=== PATIENT | female | born 1945 | race Caucasian/White ===

== ENCOUNTER → 2018-02-17 | Outpatient (CLI) | payer OTHER, MEDICARE | END | disposition home or self-care (01) | LOC: KCIC 11:17 | DX: J43.9 Emphysema, unspecified (principal); I70.0 Atherosclerosis of aorta; I10 Essential (primary) hypertension; E78.5 Hyperlipidemia, unspecified; Z85.3 Personal history of malignant neoplasm of breast; Z87.891 Personal history of nicotine dependence | CPT/HCPCS: 71046 ==

== ENCOUNTER 2021-09-01 13:35 | Inpatient (IN) | payer MEDICARE ==
[~2021-09-01] VITALS: Ht 162.6 cm; Wt 66.5 kg
[~2021-09-01 13:35] MED LIST: AMLO-186 PO; ASPI-630 PO; ATOR20TA58 PO; CALC-274 PO; CITA20TA6 PO; DEXT350P PO; LOSA1TAB22 PO; METO100T7 PO; MULT-658 PO; OMEG500C PO
[2021-09-01] MEDS ORDERED: NITROGLYCERIN SUBLINGUAL 0.4 MG BOTTLE OF 25. SL PRN (13:45)
[2021-09-01] MEDS ORDERED: NITROGLYCERIN PREMIX 250 ML IV ONE (13:45)
[2021-09-01 13:46] LABS: BASO % 1 % (0-3); EOS # 0.1 x10^3/uL (0.0-0.7); EOS % 1 % (0-3); HEMATOCRIT 39.9 % (36.0-47.0); HEMOGLOBIN 13.4 g/dL (12.0-15.5); LYMPH # 2.1 x10^3/uL (1.0-4.8); LYMPH % 21 % (24-48); MEAN CORPUSCULAR HEMOGLOBIN 31 pg (25-35); MEAN CORPUSCULAR HGB CONC 34 g/dL (31-37); MEAN CORPUSCULAR VOLUME 93 fL (79-100); MONO # 0.7 x10^3/uL (0.0-1.1); MONO % 7 % (0-9); NEUT # 7.1 x10^3/uL (1.8-7.7); NEUT % 71 % (31-73); PLATELET COUNT 381 x10^3/uL (140-400); RED BLOOD COUNT 4.28 x10^6/uL (3.50-5.40); RED CELL DISTRIBUTION WIDTH 13.1 % (11.5-14.5); WHITE BLOOD COUNT 9.9 x10^3/uL (4.0-11.0)
[2021-09-01 13:58] LABS: CALCIUM 8.1 mg/dL (8.5-10.1); CREATININE 0.7 mg/dL (0.6-1.0); GFR 81.8; POTASSIUM 3.6 mmol/L (3.5-5.1)
--- NOTE | 2021-09-01 14:00 | PHYS DOC ---
General Adult EDM: Chief Complaint: CHEST PAIN HPI: HPI: Patient is a 75 year old female with history of HTN, HLD, previous smoker who presents with EMS as a transfer from nearby facility with concern for STEMI. Patient had chest pain for approximately 2 hours prior to initial ED arrival. Described as central chest. Squeezing in nature. Started while seated. The chest pain stopped prior to EMS transfer. At the outside facility she received Brilinta 180 mg, 324 mg of aspirin, and a heparin bolus of 4000 units. Now denies chest pain. Denies history of coronary artery disease or diabetes. States that she has had several bouts of similar chest pain in the past several weeks, but they typically improve after she stands up and walks around. Review of Systems: Review of Systems: Constitutional: Denies fever or chills. [] Eyes: Denies change in visual acuity. [] HENT: Denies nasal congestion or sore throat. [] Respiratory: Denies cough or shortness of breath. [] Cardiovascular: + Chest pain] GI: Denies abdominal pain, nausea, vomiting, bloody stools or diarrhea. [] : Denies dysuria. [] Musculoskeletal: Denies back pain or joint pain. [] Integument: Denies rash. [] Neurologic: Denies headache, focal weakness or sensory changes. [] Psychiatric: Denies depression or anxiety. [] Heart Score: C/O Chest Pain: Yes HEART Score for Chest Pain: HEART Score for Chest Pain Response (Comments) Value History Highly Suspicious [address] Depression 2 Age > 65 2 Risk Factors >3 Risk Factors or Hx CAD 2 Total 8 Risk Factors: Risk Factors: HTN, HLD, obesity. Previous smoker. Risk Scores: Score 7 - 10: 72.7% MACE over next 6 weeks - Early Invasive Strategies Current Medications: Current Medications Medications (Trade) Dose Ordered Sig/Madelin Start Time Stop Time Status Last Admin Dose Admin Heparin Sodium (Porcine) (Heparin Sodium) 1,800 unit PRN Q6HRS PRN 09/01/21 13:45 UNV Heparin Sodium/ Dextrose 250 ml @ 0 mls/hr CONT PRN 09/01/21 13:45 UNV Nitroglycerin (Nitrostat) 0.4 mg PRN Q5MIN PRN 09/01/21 13:45 09/01/21 13:45 0.4 MG Nitroglycerin/ Dextrose 250 ml @ 6 mls/hr 1X ONCE 09/01/21 13:45 09/03/21 07:24 Allergies: Allergies: Allergies Coded Allergies Type Severity Reaction Last Updated Verified No Known Drug Allergies 08/13/13 No Physical Exam: PE: Constitutional: Anxious appearing but not in distress. HENT: Normocephalic, atraumatic, bilateral external ears normal, oropharynx moist, no oral exudates, nose normal. [] Eyes: PERRLA, EOMI, conjunctiva normal, no discharge. [] Neck: Normal range of motion, no tenderness, supple, no stridor. [] Cardiovascular:Heart rate regular rhythm, no murmur [] Lungs & Thorax: Bilateral breath sounds clear to auscultation [] Abdomen: Bowel sounds normal, soft, no tenderness, no masses, no pulsatile masses. [] Skin: Warm, dry, no erythema, no rash. [] Extremities: No tenderness, no cyanosis, no clubbing, ROM intact, no edema. [] Neurologic: Alert and oriented X 3, normal motor function, normal sensory funct ion, no focal deficits noted. [] Current Patient Data: Labs: Laboratory Tests Test 09/01/21 13:31 White Blood Count 9.9 x10^3/uL (4.0-11.0) Red Blood Count 4.28 x10^6/uL (3.50-5.40) Hemoglobin 13.4 g/dL (12.0-15.5) Hematocrit 39.9 % (36.0-47.0) Mean Corpuscular Volume 93 fL (79-100) Mean Corpuscular Hemoglobin 31 pg (25-35) Mean Corpuscular Hemoglobin Concent 34 g/dL (31-37) Red Cell Distribution Width 13.1 % (11.5-14.5) Platelet Count 381 x10^3/uL (140-400) Neutrophils (%) (Auto) 71 % (31-73) Lymphocytes (%) (Auto) 21 % (24-48) L Monocytes (%) (Auto) 7 % (0-9) Eosinophils (%) (Auto) 1 % (0-3) Basophils (%) (Auto) 1 % (0-3) Neutrophils # (Auto) 7.1 x10^3/uL (1.8-7.7) Lymphocytes # (Auto) 2.1 x10^3/uL (1.0-4.8) Monocytes # (Auto) 0.7 x10^3/uL (0.0-1.1) Eosinophils # (Auto) 0.1 x10^3/uL (0.0-0.7) Basophils # (Auto) 0.0 x10^3/uL (0.0-0.2) Laboratory Tests 09/01/21 13:31 Vital Signs: Vital Signs Date Time Temp Pulse Resp B/P (MAP) Pulse Ox O2 Delivery O2 Flow Rate FiO2 09/01/21 13:45 81 173/89 EKG: EKG: EKG on arrival (13:31): Sinus rhythm. Rate 79. Normal axis. Normal intervals. QTc 463. T wave inversion in lead III. Significant ST depression in V3V6. Outside hospital EKG (photo): Sinus rhythm. Rate 84. Normal axis. Subtle ST elevations in 2, 3, aVF with T wave inversion and ST depression in 1, aVL, and V3. Radiology/Procedures: Radiology/Procedures: [] Impression: [id number] [place] [address] IMAGING REPORT Signed PATIENT: AUSTEN HUBBARD ACCOUNT: [id number] : 1945 LOCATION: ER AGE: 75 SEX: F EXAM STATUS: PRE ER ORD. PHYSICIAN: CK COOK MD REASON: chest pain PROCEDURE: PORTABLE CHEST 1V EXAM: CHEST 1 VIEW History: Chest pain COMPARISON: 02/17/2018 TECHNIQUE: Single portable radiograph of the chest FINDINGS: The cardiac silhouette is unremarkable. The lungs are clear bilaterally. The costophrenic sulci are clear and well demarcated.. IMPRESSION: No radiographic evidence of an acute cardiopulmonary process. Electronically signed by: Ryland Corbin MD (09/01/2021 1:58 PM) [id number] DICTATED and SIGNED BY: RYLAND CORBIN MD DATE: 09/01/21 [id number] 0 Course & Med Decision Making: Course & Med Decision Making Pertinent Labs and Imaging studies reviewed. (See chart for details) Patient is a 75-year-old female with history of HTN, HLD, previous smoker who presents as a transfer from OSH with concern for STEMI. Outside hospital EKG with subtle ST elevation in the inferior leads. Was given heparin bolus, aspirin, Brilinta prior to transfer. Prior to arrival her chest pain has dissipated. EKG on arrival shows resolution of ST elevations, but shows more significant ST depressions V3V6. Repeat after 15 minutes shows dynamic T wave inversion in lead III, but no recurrence of ST elevation. Stable ST depressions. Cardiology, Dr. Cevallos, was present on patient arrival. Heparin drip and nitroglycerin drip ordered as per cardiology recommendations. Having resolution of ST elevations cardiac cath has been delayed until troponin can result to determine immediate versus delayed cath strategy. 1404 HS-Troponin 117 1408 Patient remains pain free. Discussed with Dr. Cevallos who is recommending delayed catheterization unless pain or EKG changes return. 1418 Dragon Disclaimer: Dragon Disclaimer: This electronic medical record was generated, in whole or in part, using a voice recognition dictation system. Departure Departure Impression: Primary Impression: Chest pain Additional Impression: NSTEMI (non-ST elevated myocardial infarction) Disposition: ADMITTED INPATIENT Admitting Physician: AMA Condition: IMPROVED Referrals: FRANNY HUNTER MD (PCP) CK COOK MD Sep 01, 2021 14:00
[2021-09-01 14:03] LABS: ALBUMIN 3.6 g/dL (3.4-5.0); ALBUMIN/GLOBULIN RATIO 0.8 (1.0-1.7); TOTAL BILIRUBIN 0.3 mg/dL (0.2-1.0); TOTAL PROTEIN 7.9 g/dL (6.4-8.2)
[2021-09-01] MEDS: HEPARIN 25,000UTS/250ML PREMIX 250 ML IV PRN (14:49)
--- NOTE | 2021-09-01 15:27 | EKG ---
[facility] [address] [place] [address] Test Date: 2021-09-01 Test Time: 13:31:00 Pat Name: AUSTEN HUBBARD Department: Room: Gender: F Shoe Designer: : 1945 Requested By: CK COOK Order Number: [id number] Reading MD: Aneesh Cantor Measurements Intervals [place] Rate: 86 P: 242 IN: 126 QRS: 77 QRSD: 102 T: 64 QT: 376 QTc: 453 Interpretive Statements SINUS RHYTHM ST & T ABNORMALITY, CONSIDER ANTERIOR ISCHEMIA OR LEFT VENTRICULAR STRAIN Electronically Signed On 09-03-2021 11:56:40 ENGINEER SYSTEM ADMINISTRATOR by Aneesh Cantor
--- NOTE | 2021-09-01 15:28 | EKG ---
[facility] [address] [place] [address] Test Date: 2021-09-01 Test Time: 13:45:54 Pat Name: AUSTEN HUBBARD Department: Room: Gender: F Pump Stitcher: : 1945 Requested By: CK COOK Order Number: [id number] Reading MD: Aneesh Cantor Measurements Intervals [place] Rate: 79 P: [place]: QRS: 80 QRSD: 106 T: 31 QT: 398 QTc: 463 Interpretive Statements SINUS RHYTHM ST DEPRESSION ANTEROLATERAL LEADS Electronically Signed On 09-03-2021 11:55:26 CEMENT DESPATCH OPERATOR by Aneesh Cantor
[2021-09-01 16:25] VITALS: BP 161/70
[2021-09-01] MEDS ORDERED: ASCO100T4 PO (17:09)
--- NOTE | 2021-09-01 18:09 | PDOC2 ---
CONSULT Date of Consult Date of Consult DATE: 09/01/21 TIME: 18:00 Reason for Consult Reason for Consult: Chest pain Referring Physician Referring Physician: Dr. Davila Identification/Chief Complaint Chief Complaint Chest pain Source Source: Chart review, Patient History of Present Illness Reason for Visit: The patient is a 75-year-old female who was admitted to [facility] with episodes of chest pain for 2 to 2-1/2 hours. She reported several of these episodes over the last month. This was the first time she had sought medical treatment. An EKG there showed mild ST segment elevation in the inferior leads. She was treated with heparin, aspirin and Brilinta and transferred for a possible ST elevated myocardial infarction. She was met upon her arrival in the emergency room. She reported that her chest pain had resolved. An EKG showed that her inferior ST elevation had resolved but she continues have some ST depression in the lateral leads. She denies any history of coronary disease or congestive heart failure. She does have a history of hypertension and hyperlipidemia. Her initial blood pressure on arrival was 173/89. Chest x-ray showed no acute processes. She was initially treated with IV nitro and heparin. Her blood pressure improved to 136 systolic. A second EKG again confirmed no inferior ST elevation. She remained pain-free. Emergency catheterization was deferred for treatment with the patient for a probable non-ST elevated myocardial infarction. This was discussed with the patient. Past Medical History Cardiovascular: HTN, Hyperlipidemia Pulmonary: COPD Heme/Onc: Cancer Past Surgical History Past Surgical History: Other (Procedure on her right breast for breast cancer.) Family History Family History: Hypertension Social History Quit Current Problem List Problem List Problems Medical Problems: (1) Chest pain Status: Acute (2) NSTEMI (non-ST elevated myocardial infarction) Status: Acute Current Medications Current Medications Current Medications Heparin Sodium/ Dextrose 250 ml @ 8.388 mls/ hr CONT PRN IV PER PROTOCOL Last administered on 09/01/21at 14:49; Start 09/01/21 at 13:45 Heparin Sodium (Porcine) (Heparin Sodium) 1,800 unit PRN Q6HRS PRN IV FOR UFH LEVEL LESS THAN 0.2; Start 09/01/21 at 13:45 Nitroglycerin/ Dextrose 250 ml @ 6 mls/hr 1X ONCE IV Last administered on 09/01/21at 14:46; Start 09/01/21 at 13:45; Stop 09/03/21 at 07:24 Nitroglycerin (Nitrostat) 0.4 mg PRN Q5MIN PRN SL CHEST PAIN Last administered on 09/01/21at 13:45; Start 09/01/21 at 13:45 Amlodipine Besylate (Norvasc) 5 mg HS PO ; Start 09/01/21 at 21:00 Aspirin (Aspirin Chewable) 81 mg DAILY PO ; Start 09/02/21 at 09:00 Atorvastatin Calcium (Lipitor) 20 mg HS PO ; Start 09/01/21 at 21:00 Ascorbic Acid (Vitamin C) 500 mg DAILY PO ; Start 09/02/21 at 09:00 Losartan Potassium (Cozaar) 100 mg DAILY PO ; Start 09/02/21 at 09:00 Metoprolol Succinate (Toprol Xl) 100 mg DAILY PO ; Start 09/02/21 at 09:00 Multivitamins (Thera M Plus) 1 tab DAILY PO ; Start 09/02/21 at 09:00 Hydrochlorothiazide (Hydrodiuril) 25 mg DAILY PO ; Start 09/02/21 at 09:00 Active Scripts Active Reported Vitamin C (Ascorbic Acid) 100 Mg Tablet 1 Tab PO DAILY 30 Days Centrum Silver Tablet (Multivits-Min/Fa/Lycopene/Lut) 1 Each Tablet 1 Each PO DAILY07 Aspirin 81 Mg Tab.chew 81 Mg PO DAILY07 Amlodipine Besylate 5 Mg Tablet 5 Mg PO HS Atorvastatin Calcium 20 Mg Tablet 20 Mg PO HS Losartan-Hctz 100-25 Mg Tab (Losartan/Hydrochlorothiazide) 1 Each Tablet 1 Each PO DAILY07 Metoprolol Tartrate 100 Mg Tablet 100 Mg PO DAILY07 Allergies Allergies: Coded Allergies: No Known Drug Allergies (Unverified , 08/13/13) ROS Cardiovascular: yes Chest Pain Physical Exam General: Alert, No acute distress Lungs: Clear to auscultation Heart: Regular rate Abdomen: Normal bowel sounds Vitals VITALS Vital Signs Date Time Temp Pulse Resp B/P (MAP) Pulse Ox O2 Delivery O2 Flow Rate FiO2 09/01/21 17:43 Room Air 09/01/21 16:35 72 18 98/63 (75) 100 2.0 09/01/21 16:25 98.0 98.0 Labs Labs Laboratory Tests Test 09/01/21 13:31 2/5/22 13:35 09/01/21 14:23 09/01/21 16:34 White Blood Count 9.9 x10^3/uL (4.0-11.0) Red Blood Count 4.28 x10^6/uL (3.50-5.40) Hemoglobin 13.4 g/dL (12.0-15.5) Hematocrit 39.9 % (36.0-47.0) Mean Corpuscular Volume 93 fL (79-100) Mean Corpuscular Hemoglobin 31 pg (25-35) Mean Corpuscular Hemoglobin Concent 34 g/dL (31-37) Red Cell Distribution Width 13.1 % (11.5-14.5) Platelet Count 381 x10^3/uL (140-400) Neutrophils (%) (Auto) 71 % (31-73) Lymphocytes (%) (Auto) 21 % (24-48) Monocytes (%) (Auto) 7 % (0-9) Eosinophils (%) (Auto) 1 % (0-3) Basophils (%) (Auto) 1 % (0-3) Neutrophils # (Auto) 7.1 x10^3/uL (1.8-7.7) Lymphocytes # (Auto) 2.1 x10^3/uL (1.0-4.8) Monocytes # (Auto) 0.7 x10^3/uL (0.0-1.1) Eosinophils # (Auto) 0.1 x10^3/uL (0.0-0.7) Basophils # (Auto) 0.0 x10^3/uL (0.0-0.2) Sodium Level 137 mmol/L (136-145) Potassium Level 3.6 mmol/L (3.5-5.1) Chloride Level 98 mmol/L (98-107) Carbon Dioxide Level 29 mmol/L (21-32) Anion Gap 10 (6-14) Blood Urea Nitrogen 15 mg/dL (7-20) Creatinine 0.7 mg/dL (0.6-1.0) Estimated GFR (Cockcroft-Gault) 81.8 BUN/Creatinine Ratio 21 (6-20) Glucose Level 116 mg/dL (70-99) Calcium Level 8.1 mg/dL (8.5-10.1) Total Bilirubin 0.3 mg/dL (0.2-1.0) Aspartate Amino Transf (AST/SGOT) 28 U/L (15-37) Alanine Aminotransferase (ALT/SGPT) 34 U/L (14-59) Alkaline Phosphatase 61 U/L (46-116) Troponin I High Sensitivity 117 ng/L (4-50) 861 ng/L (4-50) Total Protein 7.9 g/dL (6.4-8.2) Albumin 3.6 g/dL (3.4-5.0) Albumin/Globulin Ratio 0.8 (1.0-1.7) Activated Partial Thromboplast Time > 150 SEC (24-38) 80 SEC (24-38) Laboratory Tests Test 09/01/21 13:31 09/01/21 13:35 09/01/21 14:23 09/01/21 16:34 White Blood Count 9.9 x10^3/uL (4.0-11.0) Red Blood Count 4.28 x10^6/uL (3.50-5.40) Hemoglobin 13.4 g/dL (12.0-15.5) Hematocrit 39.9 % (36.0-47.0) Mean Corpuscular Volume 93 fL (79-100) Mean Corpuscular Hemoglobin 31 pg (25-35) Mean Corpuscular Hemoglobin Concent 34 g/dL (31-37) Red Cell Distribution Width 13.1 % (11.5-14.5) Platelet Count 381 x10^3/uL (140-400) Neutrophils (%) (Auto) 71 % (31-73) Lymphocytes (%) (Auto) 21 % (24-48) Monocytes (%) (Auto) 7 % (0-9) Eosinophils (%) (Auto) 1 % (0-3) Basophils (%) (Auto) 1 % (0-3) Neutrophils # (Auto) 7.1 x10^3/uL (1.8-7.7) Lymphocytes # (Auto) 2.1 x10^3/uL (1.0-4.8) Monocytes # (Auto) 0.7 x10^3/uL (0.0-1.1) Eosinophils # (Auto) 0.1 x10^3/uL (0.0-0.7) Basophils # (Auto) 0.0 x10^3/uL (0.0-0.2) Sodium Level 137 mmol/L (136-145) Potassium Level 3.6 mmol/L (3.5-5.1) Chloride Level 98 mmol/L (98-107) Carbon Dioxide Level 29 mmol/L (21-32) Anion Gap 10 (6-14) Blood Urea Nitrogen 15 mg/dL (7-20) Creatinine 0.7 mg/dL (0.6-1.0) Estimated GFR (Cockcroft-Gault) 81.8 BUN/Creatinine Ratio 21 (6-20) Glucose Level 116 mg/dL (70-99) Calcium Level 8.1 mg/dL (8.5-10.1) Total Bilirubin 0.3 mg/dL (0.2-1.0) Aspartate Amino Transf (AST/SGOT) 28 U/L (15-37) Alanine Aminotransferase (ALT/SGPT) 34 U/L (14-59) Alkaline Phosphatase 61 U/L (46-116) Troponin I High Sensitivity 117 ng/L (4-50) 861 ng/L (4-50) Total Protein 7.9 g/dL (6.4-8.2) Albumin 3.6 g/dL (3.4-5.0) Albumin/Globulin Ratio 0.8 (1.0-1.7) Activated Partial Thromboplast Time > 150 SEC (24-38) 80 SEC (24-38) Images Images Chest x-ray with no acute changes. Assessment/Plan Assessment/Plan 1. Non-ST elevated myocardial infarction. As noted above patient arrived in the emergency room chest pain-free. EKG showed no ST elevation. She continues to be treated with heparin and nitroglycerin and has remained pain-free. We will trend her troponins. Continue present medical treatment. Probable cardiac catheterization in 24 to 48 hours if she remains stable. 2. Accelerated hypertension. Initial systolic blood pressure of 173. Initiall y treated with IV nitroglycerin. Will monitor and add oral medications as appropriate. 3. History of hyperlipidemia. Continue statin medications. Check morning lab. 4. History of breast cancer. We will obtain records regarding this. ELLIS CHERY MD Sep 01, 2021 18:09
--- NOTE | 2021-09-01 18:43 | HP ---
DATE OF SERVICE: 09/01/2021 ADMIT DATE: 09/01/2021 CHIEF COMPLAINT: Chest pain. HISTORY OF PRESENT ILLNESS: The patient is a pleasant 75-year-old female who presented to the ER with chest pain. She actually went to the [facility] where they noted that she had some EKG changes and was sent here for evaluation. We checked her troponin, it was high at 117 and it now has bumped up to 861. I discussed the case with ER physician. We are placing the patient on a heparin drip and nitro drip. We have consulted Cardiology. I suspect she might be going to the chemistry laboratory technician. PAST MEDICAL HISTORY: Hypertension, COPD, hyperlipidemia, cancer. ALLERGIES: None. FAMILY HISTORY: She denies coronary artery disease in the family. SOCIAL HISTORY: She does not drink, smoke or take drugs. She is . I think she quit smoking. MEDICATIONS: Reviewed, please refer to the MRAD. REVIEW OF SYSTEMS: GENERAL: No history of weight change, weakness or fevers. SKIN: No bruising, hair changes or rashes. EYES: No blurred, double or loss of vision. NOSE AND THROAT: No history of nosebleeds, hoarseness or sore throat. HEART: No history of palpitations, chest pain or shortness of breath on exertion. LUNGS: Denies cough, hemoptysis, wheezing or shortness of breath. GASTROINTESTINAL: Denies changes in appetite, nausea, vomiting, diarrhea or constipation. GENITOURINARY: No history of frequency, urgency, hesitancy or nocturia. NEUROLOGIC: Denies history of numbness, tingling, tremor or weakness. PSYCHIATRIC: No history of panic, anxiety or depression. ENDOCRINE: No history of heat or cold intolerance, polyuria or polydipsia. EXTREMITIES: Denies muscle weakness, joint pain, pain on walking or stiffness. PHYSICAL EXAMINATION: VITALS: Within normal limits and are stable. GENERAL: No apparent distress. Alert and oriented. HEENT: Normal cephalic atraumatic, external auditory canals are patent. EYES: Extraocular muscles are intact, pupils are equally round and reactive to light and accommodation. MUSCULOSKELETAL: Well developed, well nourished, good range of motion. ENDOCRINE: No thyromegaly was palpated. LYMPHATICS: No cervical chain or axillary nodes were noted. HEMATOPOIETIC: No bruising. NECK: Supple, no JVD, no thyromegaly was noted. LUNGS: Clear to auscultation in all lung abdi without rhonchi or wheezing. HEART: RRR, S1, S2 present. Peripheral pulses intact, no obvious murmurs were noted. ABDOMEN: Soft, nontender. Positive bowel sounds no organomegaly, normal bowel sounds. EXTREMITIES: Without any cyanosis, clubbing, or edema. Pedal pulses intact, Homans sign is negative. NEUROLOGIC: Normal speech, normal tone. A and O x 3, moves all extremities, no obvious focal deficits. PSYCHIATRIC: Normal affect, normal mood. Stable. SKIN: No ulcerations or rashes, good skin turgor, no jaundice. VASCULAR: Good capillary refill, neurovascular bundle appears to be intact. LABORATORY DATA: Her troponin is high at 861. ASSESSMENT AND PLAN: Acute myocardial infarction. The patient will be admitted. We will consult Cardiology. We placed her on a heparin drip and a nitro drip. Dr. Cevallos is considering probable cardiac cath in the next 24-48 hours if she remains stable. Home meds. Deep venous thrombosis prophylaxis. Full code. PROGNOSIS: Guarded. LEIGH ANN/JESUS DR: Roman TID: [id number]
[2021-09-01 19:25] VITALS: BP 138/65
[2021-09-01 20:45] VITALS: BP 129/64
[2021-09-01] MEDS: ATORVASTATIN CALCIUM 20 MG TABLET PO SCH (20:55)
[2021-09-01 22:28] VITALS: BP 120/60
[2021-09-01] MEDS: HEPARIN for IV BOLUS 10,000 UNIT/10 ML VIAL. IV PRN (22:41)
[2021-09-02] VITALS (8 sets, daily range): BP systolic 122–154; BP diastolic 60–67
[2021-09-02 05:36] LABS: CALCIUM 8.8 mg/dL (8.5-10.1); CREATININE 0.6 mg/dL (0.6-1.0); GFR 97.7; POTASSIUM 3.7 mmol/L (3.5-5.1)
[2021-09-02 05:39] LABS: CHOLESTEROL/HDL RATIO 2.9
[2021-09-02] MEDS: HEPARIN for IV BOLUS 10,000 UNIT/10 ML VIAL. IV PRN (06:21)
[2021-09-02] MEDS: LOSARTAN POTASSIUM 50 MG TABLET. PO SCH (08:37)
[2021-09-02] MEDS: hydroCHLOROthiazide 25 MG TABLET PO SCH (08:37)
[2021-09-02] MEDS: ASPIRIN CHEWABLE 81 MG TABLET. PO SCH (08:38)
[2021-09-02] MEDS: METOPROLOL SUCC 24HR ER 100 MG TAB.ER.24H. PO SCH (08:38)
[2021-09-02] MEDS: ASCORBIC ACID 500 MG TABLET PO SCH (08:38)
[2021-09-02] MEDS: MULTIVITAMIN with MINERAL TABLET. PO SCH (08:38)
--- NOTE | 2021-09-02 09:47 | PDOC ---
[employer] PROGRESS NOTE Date of Service DOS: DATE: 09/02/21 TIME: 09:27 Chief Complaint Chief Complaint A/P: NSTEMI - chest pain, elevated troponin, no ST elevations, some depressions improved with heparin and nitro GTT. Cardiac catheterization within the next 24 hours planned. Breast cancer - bilateral s/p lumpectomy and right axillary lypmh node dissection, chemo and radiation therapy in 2002, been in remission, off tamoxifen currently Hypertension - on metoprolol, olmesartan, HCTZ Hyperlipidemia - statin COPD - prn nebs History of Present Illness History of Present Illness Ms. Fox is a 75-year-old female with past medical history hypertension, hyperlipidemia, COPD who comes from [facility] ED c/o chest pain for 2 hours on 09/01/21 in her central chest. Squeezing in nature. Started while seated. Radiated into her bilateral posterior neck. The chest pain stopped prior to EMS transfer. She has had a few of these episodes over the last 2 days prior to arrival. EKG with mild ST segment elevation in the inferior leads, she received Brilinta 180 mg, 324 mg of aspirin, and a heparin bolus of 4000 units. Repeat EKG showed that her inferior ST elevation had resolved but she continues have some ST depression in the lateral leads. Chest x-ray showed no acute processes. She was initially treated with IV nitro and heparin. Her blood pressure improved to 136 systolic. A second EKG again confirmed no inferior ST elevation. 09/01: Overnight high-sensitivity troponin climbed from [phone] over 8-hour period.Complains of lower back pain. Chest pain neck pain have resolved. Blood pressure in the 120s. Vitals/I&O Vitals/I&O: Vital Signs Date Time Temp Pulse Resp B/P (MAP) Pulse Ox O2 Delivery O2 Flow Rate FiO2 09/02/21 08:38 77 09/02/21 07:00 97.8 16 122/60 (80) 94 Room Air 97.8 09/01/21 16:35 2.0 I & O 09/01/21 09/01/21 09/02/21 15:00 23:00 07:00 Intake Total 210 ml 200 ml Output Total 1100 ml 1250 ml Balance -890 ml -1050 ml Physical Exam General: Alert, No acute distress Heart: Regular rate Abdomen: Normal bowel sounds Labs Labs: Laboratory Tests Test 09/01/21 13:31 09/01/21 13:35 09/01/21 14:23 09/01/21 16:34 White Blood Count 9.9 x10^3/uL (4.0-11.0) Red Blood Count 4.28 x10^6/uL (3.50-5.40) Hemoglobin 13.4 g/dL (12.0-15.5) Hematocrit 39.9 % (36.0-47.0) Mean Corpuscular Volume 93 fL (79-100) Mean Corpuscular Hemoglobin 31 pg (25-35) Mean Corpuscular Hemoglobin Concent 34 g/dL (31-37) Red Cell Distribution Width 13.1 % (11.5-14.5) Platelet Count 381 x10^3/uL (140-400) Neutrophils (%) (Auto) 71 % (31-73) Lymphocytes (%) (Auto) 21 % (24-48) Monocytes (%) (Auto) 7 % (0-9) Eosinophils (%) (Auto) 1 % (0-3) Basophils (%) (Auto) 1 % (0-3) Neutrophils # (Auto) 7.1 x10^3/uL (1.8-7.7) Lymphocytes # (Auto) 2.1 x10^3/uL (1.0-4.8) Monocytes # (Auto) 0.7 x10^3/uL (0.0-1.1) Eosinophils # (Auto) 0.1 x10^3/uL (0.0-0.7) Basophils # (Auto) 0.0 x10^3/uL (0.0-0.2) Sodium Level 137 mmol/L (136-145) Potassium Level 3.6 mmol/L (3.5-5.1) Chloride Level 98 mmol/L (98-107) Carbon Dioxide Level 29 mmol/L (21-32) Anion Gap 10 (6-14) Blood Urea Nitrogen 15 mg/dL (7-20) Creatinine 0.7 mg/dL (0.6-1.0) Estimated GFR (Cockcroft-Gault) 81.8 BUN/Creatinine Ratio 21 (6-20) Glucose Level 116 mg/dL (70-99) Calcium Level 8.1 mg/dL (8.5-10.1) Total Bilirubin 0.3 mg/dL (0.2-1.0) Aspartate Amino Transf (AST/SGOT) 28 U/L (15-37) Alanine Aminotransferase (ALT/SGPT) 34 U/L (14-59) Alkaline Phosphatase 61 U/L (46-116) Troponin I High Sensitivity 117 ng/L (4-50) 861 ng/L (4-50) Total Protein 7.9 g/dL (6.4-8.2) Albumin 3.6 g/dL (3.4-5.0) Albumin/Globulin Ratio 0.8 (1.0-1.7) Activated Partial Thromboplast Time > 150 SEC (24-38) 80 SEC (24-38) Test 09/01/21 21:30 09/02/21 05:10 Heparin Anti-Xa Act, Unfractionated 0.18 IU/mL (0.30-0.70) < 0.10 IU/mL (0.30-0.70) Troponin I High Sensitivity 1154 ng/L (4-50) Sodium Level 136 mmol/L (136-145) Potassium Level 3.7 mmol/L (3.5-5.1) Chloride Level 102 mmol/L (98-107) Carbon Dioxide Level 25 mmol/L (21-32) Anion Gap 9 (6-14) Blood Urea Nitrogen 12 mg/dL (7-20) Creatinine 0.6 mg/dL (0.6-1.0) Estimated GFR (Cockcroft-Gault) 97.7 Glucose Level 108 mg/dL (70-99) Calcium Level 8.8 mg/dL (8.5-10.1) Triglycerides Level 171 mg/dL (0-150) Cholesterol Level 149 mg/dL (0-200) LDL Cholesterol, Calculated 63 mg/dL (0-100) VLDL Cholesterol, Calculated 34 mg/dL (0-40) Non-HDL Cholesterol Calculated 97 mg/dL (0-129) HDL Cholesterol 52 mg/dL (40-60) Cholesterol/HDL Ratio 2.9 Assessment and Plan Assessmemt and Plan Problems Medical Problems: (1) Chest pain Status: Acute (2) NSTEMI (non-ST elevated myocardial infarction) Status: Acute Comment Review of Relevant I have reviewed the following items pepper (where applicable) has been applied. Medications: Current Medications Medications (Trade) Dose Ordered Sig/Madelin Route PRN Reason Start Time Stop Time Status Last Admin Dose Admin Heparin Sodium/ Dextrose 250 ml @ 8.388 mls/ hr CONT PRN IV PER PROTOCOL 09/01/21 13:45 09/01/21 14:49 Heparin Sodium (Porcine) (Heparin Sodium) 1,800 unit PRN Q6HRS PRN IV FOR UFH LEVEL LESS THAN 0.2 09/01/21 13:45 09/02/21 06:21 Nitroglycerin/ Dextrose 250 ml @ 6 mls/hr 1X ONCE IV 09/01/21 13:45 09/03/21 07:24 09/01/21 14:46 Nitroglycerin (Nitrostat) 0.4 mg PRN Q5MIN PRN SL CHEST PAIN 09/01/21 13:45 09/01/21 13:45 Amlodipine Besylate (Norvasc) 5 mg HS PO 09/01/21 21:00 09/01/21 20:54 Aspirin (Aspirin Chewable) 81 mg DAILY PO 09/02/21 09:00 09/02/21 08:38 Atorvastatin Calcium (Lipitor) 20 mg HS PO 09/01/21 21:00 09/01/21 20:55 Ascorbic Acid (Vitamin C) 500 mg DAILY PO 09/02/21 09:00 09/02/21 08:38 Losartan Potassium (Cozaar) 100 mg DAILY PO 09/02/21 09:00 09/02/21 08:37 Metoprolol Succinate (Toprol Xl) 100 mg DAILY PO 09/02/21 09:00 09/02/21 08:38 Multivitamins (Thera M Plus) 1 tab DAILY PO 09/02/21 09:00 09/02/21 08:38 Hydrochlorothiazide (Hydrodiuril) 25 mg DAILY PO 09/02/21 09:00 09/02/21 08:37 Justifications for Admission Other Justification JEEVAN QUINTANILLA MD Sep 02, 2021 09:47
[2021-09-02] MEDS: LIDOCAINE (700MG/PATCH) PATCH. TD SCH (09:53)
[2021-09-02] MEDS ORDERED: ALBUTEROL SULFATE 2.5 MG/3 ML NEBU. NEB PRN (10:00)
[2021-09-02] MEDS: HEPARIN 25,000UTS/250ML PREMIX 250 ML IV PRN (12:19)
[2021-09-02 13:58] LABS: BASO % 0 % (0-3); EOS # 0.1 x10^3/uL (0.0-0.7); EOS % 1 % (0-3); HEMATOCRIT 36.3 % (36.0-47.0); HEMOGLOBIN 12.4 g/dL (12.0-15.5); LYMPH % 22 % (24-48); MEAN CORPUSCULAR HEMOGLOBIN 32 pg (25-35); MEAN CORPUSCULAR HGB CONC 34 g/dL (31-37); MEAN CORPUSCULAR VOLUME 92 fL (79-100); MONO # 0.6 x10^3/uL (0.0-1.1); MONO % 6 % (0-9); NEUT # 6.6 x10^3/uL (1.8-7.7); NEUT % 71 % (31-73); PLATELET COUNT 348 x10^3/uL (140-400); RED BLOOD COUNT 3.93 x10^6/uL (3.50-5.40); RED CELL DISTRIBUTION WIDTH 13.5 % (11.5-14.5); WHITE BLOOD COUNT 9.3 x10^3/uL (4.0-11.0)
--- NOTE | 2021-09-02 15:22 | PDOC ---
PROGRESS NOTES Date of Service DATE: 09/02/21 TIME: 15:19 Subjective Subjective Patient seen and examined She looks and feels better today. She has remained chest pain-free since admission. Objective Objective Vital Signs Date Time Temp Pulse Resp B/P (MAP) Pulse Ox O2 Delivery O2 Flow Rate FiO2 09/02/21 11:00 98.2 69 16 122/60 (80) 94 Room Air 98.2 09/01/21 16:35 2.0 Intake and Output 09/02/21 07:00 Intake Total 410 ml Output Total 2350 ml Balance -1940 ml Intake Oral 410 ml Output Urine Total 2350 ml # Voids 1 # Bowel Movements 1 Physical Exam Abdomen: Normal bowel sounds Heart: Regular rate General: No acute distress Lungs: Other (Slightly decreased breath sounds) Assessment Assessment CalciumProblems Medical Problems: (1) Chest pain Status: Acute (2) NSTEMI (non-ST elevated myocardial infarction) Status: Acute 1. Non-ST elevated myocardial infarction. As noted above patient arrived in the emergency room chest pain-free. EKG showed no ST elevation. She has remained chest pain-free overnight. Peak troponin of 1154. 3.7, creatinine 0.6, LDL 63 and HDL of 52. We will continue present treatment. Cardiac catheterization and possible revascularization tomorrow. Risks and benefits discussed with the patient and she has agreed to proceed. 2. Accelerated hypertension. Initial systolic blood pressure of 173. Initially treated with IV nitroglycerin. Significantly improved today. We will continue present medications and add oral medications. 3. History of hyperlipidemia. Continue statin medications. Morning lab as above shows a LDL of 63 and an HDL of 52. Check morning lab. 4. History of breast cancer. Comment Review of Relevant I have reviewed the following items pepper (where applicable) has been applied. Labs Laboratory Tests Test 09/01/21 13:31 09/01/21 13:35 09/01/21 14:23 09/01/21 16:34 White Blood Count 9.9 x10^3/uL (4.0-11.0) Red Blood Count 4.28 x10^6/uL (3.50-5.40) Hemoglobin 13.4 g/dL (12.0-15.5) Hematocrit 39.9 % (36.0-47.0) Mean Corpuscular Volume 93 fL (79-100) Mean Corpuscular Hemoglobin 31 pg (25-35) Mean Corpuscular Hemoglobin Concent 34 g/dL (31-37) Red Cell Distribution Width 13.1 % (11.5-14.5) Platelet Count 381 x10^3/uL (140-400) Neutrophils (%) (Auto) 71 % (31-73) Lymphocytes (%) (Auto) 21 % (24-48) Monocytes (%) (Auto) 7 % (0-9) Eosinophils (%) (Auto) 1 % (0-3) Basophils (%) (Auto) 1 % (0-3) Neutrophils # (Auto) 7.1 x10^3/uL (1.8-7.7) Lymphocytes # (Auto) 2.1 x10^3/uL (1.0-4.8) Monocytes # (Auto) 0.7 x10^3/uL (0.0-1.1) Eosinophils # (Auto) 0.1 x10^3/uL (0.0-0.7) Basophils # (Auto) 0.0 x10^3/uL (0.0-0.2) Sodium Level 137 mmol/L (136-145) Potassium Level 3.6 mmol/L (3.5-5.1) Chloride Level 98 mmol/L (98-107) Carbon Dioxide Level 29 mmol/L (21-32) Anion Gap 10 (6-14) Blood Urea Nitrogen 15 mg/dL (7-20) Creatinine 0.7 mg/dL (0.6-1.0) Estimated GFR (Cockcroft-Gault) 81.8 BUN/Creatinine Ratio 21 (6-20) Glucose Level 116 mg/dL (70-99) Calcium Level 8.1 mg/dL (8.5-10.1) Total Bilirubin 0.3 mg/dL (0.2-1.0) Aspartate Amino Transf (AST/SGOT) 28 U/L (15-37) Alanine Aminotransferase (ALT/SGPT) 34 U/L (14-59) Alkaline Phosphatase 61 U/L (46-116) Troponin I High Sensitivity 117 ng/L (4-50) 861 ng/L (4-50) Total Protein 7.9 g/dL (6.4-8.2) Albumin 3.6 g/dL (3.4-5.0) Albumin/Globulin Ratio 0.8 (1.0-1.7) Activated Partial Thromboplast Time > 150 SEC (24-38) 80 SEC (24-38) Test 09/01/21 21:30 09/02/21 05:10 09/02/21 13:23 Heparin Anti-Xa Act, Unfractionated 0.18 IU/mL (0.30-0.70) < 0.10 IU/mL (0.30-0.70) 0.57 IU/mL (0.30-0.70) Troponin I High Sensitivity 1154 ng/L (4-50) Sodium Level 136 mmol/L (136-145) Potassium Level 3.7 mmol/L (3.5-5.1) Chloride Level 102 mmol/L (98-107) Carbon Dioxide Level 25 mmol/L (21-32) Anion Gap 9 (6-14) Blood Urea Nitrogen 12 mg/dL (7-20) Creatinine 0.6 mg/dL (0.6-1.0) Estimated GFR (Cockcroft-Gault) 97.7 Glucose Level 108 mg/dL (70-99) Calcium Level 8.8 mg/dL (8.5-10.1) Triglycerides Level 171 mg/dL (0-150) Cholesterol Level 149 mg/dL (0-200) LDL Cholesterol, Calculated 63 mg/dL (0-100) VLDL Cholesterol, Calculated 34 mg/dL (0-40) Non-HDL Cholesterol Calculated 97 mg/dL (0-129) HDL Cholesterol 52 mg/dL (40-60) Cholesterol/HDL Ratio 2.9 White Blood Count 9.3 x10^3/uL (4.0-11.0) Red Blood Count 3.93 x10^6/uL (3.50-5.40) Hemoglobin 12.4 g/dL (12.0-15.5) Hematocrit 36.3 % (36.0-47.0) Mean Corpuscular Volume 92 fL (79-100) Mean Corpuscular Hemoglobin 32 pg (25-35) Mean Corpuscular Hemoglobin Concent 34 g/dL (31-37) Red Cell Distribution Width 13.5 % (11.5-14.5) Platelet Count 348 x10^3/uL (140-400) Neutrophils (%) (Auto) 71 % (31-73) Lymphocytes (%) (Auto) 22 % (24-48) Monocytes (%) (Auto) 6 % (0-9) Eosinophils (%) (Auto) 1 % (0-3) Basophils (%) (Auto) 0 % (0-3) Neutrophils # (Auto) 6.6 x10^3/uL (1.8-7.7) Lymphocytes # (Auto) 2.0 x10^3/uL (1.0-4.8) Monocytes # (Auto) 0.6 x10^3/uL (0.0-1.1) Eosinophils # (Auto) 0.1 x10^3/uL (0.0-0.7) Basophils # (Auto) 0.0 x10^3/uL (0.0-0.2) Laboratory Tests Test 09/01/21 16:34 09/01/21 21:30 09/02/21 05:10 09/02/21 13:23 Troponin I High Sensitivity 861 ng/L (4-50) 1154 ng/L (4-50) Heparin Anti-Xa Act, Unfractionated 0.18 IU/mL (0.30-0.70) < 0.10 IU/mL (0.30-0.70) 0.57 IU/mL (0.30-0.70) Sodium Level 136 mmol/L (136-145) Potassium Level 3.7 mmol/L (3.5-5.1) Chloride Level 102 mmol/L (98-107) Carbon Dioxide Level 25 mmol/L (21-32) Anion Gap 9 (6-14) Blood Urea Nitrogen 12 mg/dL (7-20) Creatinine 0.6 mg/dL (0.6-1.0) Estimated GFR (Cockcroft-Gault) 97.7 Glucose Level 108 mg/dL (70-99) Calcium Level 8.8 mg/dL (8.5-10.1) Triglycerides Level 171 mg/dL (0-150) Cholesterol Level 149 mg/dL (0-200) LDL Cholesterol, Calculated 63 mg/dL (0-100) VLDL Cholesterol, Calculated 34 mg/dL (0-40) Non-HDL Cholesterol Calculated 97 mg/dL (0-129) HDL Cholesterol 52 mg/dL (40-60) Cholesterol/HDL Ratio 2.9 White Blood Count 9.3 x10^3/uL (4.0-11.0) Red Blood Count 3.93 x10^6/uL (3.50-5.40) Hemoglobin 12.4 g/dL (12.0-15.5) Hematocrit 36.3 % (36.0-47.0) Mean Corpuscular Volume 92 fL (79-100) Mean Corpuscular Hemoglobin 32 pg (25-35) Mean Corpuscular Hemoglobin Concent 34 g/dL (31-37) Red Cell Distribution Width 13.5 % (11.5-14.5) Platelet Count 348 x10^3/uL (140-400) Neutrophils (%) (Auto) 71 % (31-73) Lymphocytes (%) (Auto) 22 % (24-48) Monocytes (%) (Auto) 6 % (0-9) Eosinophils (%) (Auto) 1 % (0-3) Basophils (%) (Auto) 0 % (0-3) Neutrophils # (Auto) 6.6 x10^3/uL (1.8-7.7) Lymphocytes # (Auto) 2.0 x10^3/uL (1.0-4.8) Monocytes # (Auto) 0.6 x10^3/uL (0.0-1.1) Eosinophils # (Auto) 0.1 x10^3/uL (0.0-0.7) Basophils # (Auto) 0.0 x10^3/uL (0.0-0.2) Medications Current Medications Heparin Sodium/ Dextrose 250 ml @ 8.388 mls/ hr CONT PRN IV PER PROTOCOL Last administered on 09/02/21at 12:19; Start 09/01/21 at 13:45 Heparin Sodium (Porcine) (Heparin Sodium) 1,800 unit PRN Q6HRS PRN IV FOR UFH LEVEL LESS THAN 0.2 Last administered on 09/02/21at 06:21; Start 09/01/21 at 13:45 Nitroglycerin/ Dextrose 250 ml @ 6 mls/hr 1X ONCE IV Last administered on 09/01/21at 14:46; Start 09/01/21 at 13:45; Stop 09/03/21 at 07:24 Nitroglycerin (Nitrostat) 0.4 mg PRN Q5MIN PRN SL CHEST PAIN Last administered on 09/01/21 13:45; Start 09/01/21 at 13:45 Amlodipine Besylate (Norvasc) 5 mg HS PO Last administered on 09/01/21 20:54; Start 09/01/21 at 21:00 Aspirin (Aspirin Chewable) 81 mg DAILY PO Last administered on 09/02/21 08:38; Start 09/02/21 at 09:00 Atorvastatin Calcium (Lipitor) 20 mg HS PO Last administered on 09/01/21at 20:55; Start 09/01/21 at 21:00 Ascorbic Acid (Vitamin C) 500 mg DAILY PO Last administered on 09/02/21 08:38; Start 09/02/21 at 09:00 Losartan Potassium (Cozaar) 100 mg DAILY PO Last administered on 09/02/21 08:37; Start 09/02/21 at 09:00 Metoprolol Succinate (Toprol Xl) 100 mg DAILY PO Last administered on 09/02/21 08:38; Start 09/02/21 at 09:00 Multivitamins (Thera M Plus) 1 tab DAILY PO Last administered on 09/02/21 08:38; Start 09/02/21 at 09:00 Hydrochlorothiazide (Hydrodiuril) 25 mg DAILY PO Last administered on 09/02/21 08:37; Start 09/02/21 at 09:00 Albuterol Sulfate (Ventolin Neb Soln) 2.5 mg PRN Q4HRS PRN NEB SHORTNESS OF BREATH; Start 09/02/21 at 10:00 Lidocaine (Lidoderm) 1 patch DAILY TD Last administered on 09/02/21at 09:53; Sta rt 09/02/21 at 10:00 Miscellaneous (Lidoderm Patch Removal) 1 ea QHS ; Start 09/02/21 at 21:00 Active Scripts Active Reported Vitamin C (Ascorbic Acid) 100 Mg Tablet 1 Tab PO DAILY 30 Days Centrum Silver Tablet (Multivits-Min/Fa/Lycopene/Lut) 1 Each Tablet 1 Each PO DAILY07 Aspirin 81 Mg Tab.chew 81 Mg PO DAILY07 Amlodipine Besylate 5 Mg Tablet 5 Mg PO HS Atorvastatin Calcium 20 Mg Tablet 20 Mg PO HS Losartan-Hctz 100-25 Mg Tab (Losartan/Hydrochlorothiazide) 1 Each Tablet 1 Each PO DAILY07 Metoprolol Tartrate 100 Mg Tablet 100 Mg PO DAILY07 Vitals/I & O Vital Sign - Last 24 Hours 09/01/21 09/01/21 09/01/21 09/01/21 15:35 16:25 16:35 17:43 Temp 98.0 98.0 Pulse 74 76 72 Resp 18 18 18 B/P (MAP) 110/58 (75) 161/70 (100) 98/63 (75) Pulse Ox 99 97 100 O2 Delivery Room Air Room Air Nasal Cannula Room Air O2 Flow Rate 2.0 09/01/21 09/01/21 09/01/21 09/01/21 19:25 20:00 20:45 20:54 Temp 97.7 97.7 Pulse 71 68 68 Resp 18 B/P (MAP) 138/65 (89) 129/64 (85) 129/64 Pulse Ox 96 O2 Delivery Room Air Room Air 09/01/21 09/02/21 09/02/21 09/02/21 22:28 00:28 01:29 02:28 Temp 97.9 97.9 Pulse 62 68 70 66 Resp 18 B/P (MAP) 120/60 (80) 139/65 (89) 154/67 (96) 134/62 (86) Pulse Ox 97 O2 Delivery Room Air 09/02/21 09/02/21 09/02/21 09/02/21 07:00 08:05 08:37 08:38 Temp 97.8 97.8 Pulse 70 77 77 Resp 16 B/P (MAP) 122/60 (80) Pulse Ox 94 O2 Delivery Room Air Room Air 09/02/21 11:00 Temp 98.2 98.2 Pulse 69 Resp 16 B/P (MAP) 122/60 (80) Pulse Ox 94 O2 Delivery Room Air Intake and Output 09/01/21 09/01/21 09/02/21 15:00 23:00 07:00 Intake Total 210 ml 200 ml Output Total 1100 ml 1250 ml Balance -890 ml -1050 ml Justifications for Admission Other Justification ELLIS CHERY MD Sep 02, 2021 15:22
[2021-09-02] MEDS: PATCH REMOVAL. MC SCH (21:00)
[2021-09-02] MEDS: ATORVASTATIN CALCIUM 20 MG TABLET PO SCH (22:04)
[2021-09-03] VITALS (19 sets, daily range): BP systolic 103–151; BP diastolic 54–73
[2021-09-03] MEDS ORDERED: NITROGLYCERIN PREMIX 250 ML IV PRN (02:00)
[2021-09-03] MEDS ORDERED: IOHEXOL 300 MG/ML 100ML VIAL. ONE (08:04)
[2021-09-03] MEDS ORDERED: LIDOCAINE 1% PF 2 ML VIAL. ONE (08:04)
[2021-09-03] MEDS ORDERED: HEPARIN for ARTERIAL LINE 1,500 ML ONE (08:05)
[2021-09-03] MEDS: ASPIRIN CHEWABLE 81 MG TABLET. PO SCH (08:09)
[2021-09-03] MEDS: LOSARTAN POTASSIUM 50 MG TABLET. PO SCH (08:10)
[2021-09-03] MEDS: METOPROLOL SUCC 24HR ER 100 MG TAB.ER.24H. PO SCH (08:10)
[2021-09-03] MEDS ORDERED: HEPARIN for IV BOLUS 10,000 UNIT/10 ML VIAL. ONE (08:11)
[2021-09-03] MEDS ORDERED: MIDAZOLAM HCL/PF 2 MG/2 ML VIAL. ONE (08:11)
[2021-09-03] MEDS ORDERED: VERAPAMIL 5 MG/2 ML VIAL. ONE (08:11)
[2021-09-03] MEDS ORDERED: fentaNYL PF VIAL 100 MCG/2 ML VIAL ONE (08:11)
[2021-09-03] MEDS ORDERED: NITROGLYCERIN 200 MCG/2 ML SYRINGE FOR CATH/VASC LAB. ONE (08:12)
[2021-09-03] MEDS ORDERED: IOHEXOL 300 MG/ML 100ML VIAL. IART ONE (08:15)
[2021-09-03] MEDS ORDERED: VERAPAMIL 5 MG/2 ML VIAL. IART ONE (08:15)
[2021-09-03] MEDS ORDERED: MIDAZOLAM HCL/PF 2 MG/2 ML VIAL. IV ONE (08:15)
[2021-09-03] MEDS ORDERED: NITROGLYCERIN 200 MCG/2 ML SYRINGE FOR CATH/VASC LAB. IART ONE (08:15)
[2021-09-03] MEDS ORDERED: HEPARIN for IV BOLUS 10,000 UNIT/10 ML VIAL. IART ONE (08:15)
[2021-09-03] MEDS ORDERED: fentaNYL PF VIAL 100 MCG/2 ML VIAL IV ONE (08:15)
[2021-09-03] MEDS ORDERED: LIDOCAINE 1% PF 2 ML VIAL. INJ ONE (08:15)
[2021-09-03] MEDS ORDERED: CONTRAST GIVEN. MC PRN (08:30)
--- NOTE | 2021-09-03 09:21 | CARD ---
MR#: [id number] Date of Study: 09/03/2021 Ordering Physician: ELLIS CHERY, Referring Physician: ELLIS CHERY, Tech: RT Brittni(R) APPROVED REPORT Technologist: Ofe Doyle RT(R) Nurse: Juana Ch RN Procedure(s) performed: MODERATE SEDATION TIME: 30 MINUTES FLUORO TIME: 2.7 MIN DOSE: 34.3 GYCM2 CONTRAST: 65CC OMNI LHC, Coronary angiography, Left ventriculogram HISTORY The patient is a 75 year-old with a history of : tobacco history() , hypertension, dyslipidemia. INDICATION The indication(s) include : non-STEMI . [facility] Clinical Frailty Scale [facility] Clinical Frailty Scale: Managing Well Heart Failure Heart Failure: Yes If Yes, Newly Diagnosed: Yes If Yes, HF Type: Diastolic If Yes, NYHA Class: Class II CASE TECHNIQUE IV conscious sedation was used throughout procedure with appropriate monitoring and was performed in the presence of a registered nurse who was an independent trained observer other than the physician p erforming the procedure. During this case, Fluoroscopy and low osmolar contrast were used for imaging . Specimen(s) Removed: N/A Estimated Blood loss: 15 cc's. PROCEDURE NARRATIVE Clinical information: 75 y.o woman presented from an outside hospital for concern for STEMI. Upon repeat evaluation at this facility, EKG was felt to be non-emergent. She had chest pain and elevated troponin and therefore sh e was ultimately taken to the [facility]. She has a history of HTN, DLP and prior tobacco abuse. Informed consent: Written informed consent was obtained from the patient after adequate discussion of the risks and bella efits of the procedure. Procedure details: ACCESS: The right wrist was prepped and draped in usual sterile fashion. Under 1% lidocaine local anesthesia a 6 [place] Terumo sheath was placed in the right radial artery via the Seldinger technique. DIAGNOSTIC ANGIOGRAPHY: Right and left coronary arteries were engaged with a 6 [place] TIG catheter. Diagnostic angiography i n multiple views were obtained. Next, a 6 [place] pigtail catheter was placed in the left ventricle a nd a LVEDP was measured. A pullback was performed after left ventriculography. All catheters were e xchanged over J-tip guidewire. FINDINGS: ======= Aorta: 110/80 LVEDP: 15 mmHg Left ventriculogram: Ejection fraction 55% Normal wall motion without any evidence of aortic or mitral insufficiency. Coronary angiography: LM: Large caliber vessel with normal angiographic appearance LAD: Large caliber vessel with long proximal to mid 70% stenosis. D1: Moderate caliber vessel with mild irregularities of up to 30%. LCX: Moderate caliber non-dominant vessel with a proximal 70% stenosis. OM1: Moderate caliber vessel with mild luminal irregularities. RCA: Large caliber dominant tortuous vessel with mild 30% proximal and mid stenosis and a distal 90% stenosis prior to the bifurcation. RPDA: Large caliber vessel with mild luminal irregularities. CLOSURE: At case completion the right radial sheath was removed and a Terumo radial band was applied with 11 m L of air. Hemostasis was achieved. COMPLICATIONS: No acute complications noted Conclusion 1. Normal left sided filling pressures. 2. Normal LV systolic function. EF 55% 3. Three vessel coronary artery disease. Recommendations 1. CABG consultation - Dr. Pino notified - await his recommendations. 2. If she is felt to not be an optimal bypass candidate then will plan for PCI of the distal RCA in 2 4 hours. 3. Continue heparin gtt. Signed by : Ajit Torrez, Electronically Approved : 09/03/2021 09:21:04
--- NOTE | 2021-09-03 09:21 | PDOC ---
[employer] PROGRESS NOTE Date of Service DOS: DATE: 09/03/21 TIME: 09:19 Chief Complaint Chief Complaint A/P: NSTEMI - chest pain, elevated troponin, no ST elevations, some depressions improved with heparin and nitro GTT. Cardiac catheterization within the next 24 hours planned. Breast cancer - bilateral s/p lumpectomy and right axillary lypmh node dissection, chemo and radiation therapy in 2002, been in remission, off tamoxifen currently Hypertension - on metoprolol, olmesartan, HCTZ Hyperlipidemia - statin COPD - prn nebs History of Present Illness History of Present Illness Ms. Fox is a 75-year-old female with past medical history hypertension, hyperlipidemia, COPD who comes from [facility] ED c/o chest pain for 2 hours on 09/01/21 in her central chest. Squeezing in nature. Started while seated. Radiated into her bilateral posterior neck. The chest pain stopped prior to EMS transfer. She has had a few of these episodes over the last 2 days prior to arrival. EKG with mild ST segment elevation in the inferior leads, she received Brilinta 180 mg, 324 mg of aspirin, and a heparin bolus of 4000 units. Repeat EKG showed that her inferior ST elevation had resolved but she continues have some ST depression in the lateral leads. Chest x-ray showed no acute processes. She was initially treated with IV nitro and heparin. Her blood pressure improved to 136 systolic. A second EKG again confirmed no inferior ST elevation. 09/02: Overnight high-sensitivity troponin climbed from [phone] over 8-hour period.Complains of lower back pain. Chest pain neck pain have resolved. Blood pressure in the 120s. 09/03: Cardiac cath this morning with triple-vessel disease 70% stenosis LAD and circumflex 70% stenosis and 90% distal stenosis RCA. Cardiology has reached out to cardiothoracic surgery Dr. Pino. Patient is anxious. She is currently feeling weak and short of breath but has no chest pain, her only pain is in her back Vitals/I&O Vitals/I&O: Vital Signs Date Time Temp Pulse Resp B/P (MAP) Pulse Ox O2 Delivery O2 Flow Rate FiO2 09/03/21 09:05 79 16 98 Nasal Cannula 2.0 09/03/21 08:10 138/57 09/03/21 07:00 97.9 97.9 I & O 2/6/22 2/6/22 2/7/22 15:00 23:00 07:00 Intake Total 180 ml 600 ml 400 ml Output Total 550 ml 1400 ml 500 ml Balance -370 ml -800 ml -100 ml Physical Exam General: No acute distress Heart: Regular rate Abdomen: Normal bowel sounds Labs Labs: Laboratory Tests Test 09/02/21 13:23 09/02/21 21:05 09/03/21 04:25 White Blood Count 9.3 x10^3/uL (4.0-11.0) Red Blood Count 3.93 x10^6/uL (3.50-5.40) Hemoglobin 12.4 g/dL (12.0-15.5) Hematocrit 36.3 % (36.0-47.0) Mean Corpuscular Volume 92 fL (79-100) Mean Corpuscular Hemoglobin 32 pg (25-35) Mean Corpuscular Hemoglobin Concent 34 g/dL (31-37) Red Cell Distribution Width 13.5 % (11.5-14.5) Platelet Count 348 x10^3/uL (140-400) Neutrophils (%) (Auto) 71 % (31-73) Lymphocytes (%) (Auto) 22 % (24-48) Monocytes (%) (Auto) 6 % (0-9) Eosinophils (%) (Auto) 1 % (0-3) Basophils (%) (Auto) 0 % (0-3) Neutrophils # (Auto) 6.6 x10^3/uL (1.8-7.7) Lymphocytes # (Auto) 2.0 x10^3/uL (1.0-4.8) Monocytes # (Auto) 0.6 x10^3/uL (0.0-1.1) Eosinophils # (Auto) 0.1 x10^3/uL (0.0-0.7) Basophils # (Auto) 0.0 x10^3/uL (0.0-0.2) Heparin Anti-Xa Act, Unfractionated 0.57 IU/mL (0.30-0.70) 0.69 IU/mL (0.30-0.70) 0.61 IU/mL (0.30-0.70) Assessment and Plan Assessmemt and Plan Problems Medical Problems: (1) Chest pain Status: Acute (2) NSTEMI (non-ST elevated myocardial infarction) Status: Acute Comment Review of Relevant I have reviewed the following items pepper (where applicable) has been applied. Medications: Current Medications Medications (Trade) Dose Ordered Sig/Madelin Route PRN Reason Start Time Stop Time Status Last Admin Dose Admin Lidocaine (Lidoderm) 1 patch DAILY TD 09/02/21 10:00 09/02/21 09:53 Miscellaneous (Lidoderm Patch Removal) 1 ea QHS MC 09/02/21 21:00 09/02/21 21:00 Nitroglycerin (Nitroglycerin) 200 mcg 1X ONCE IART 09/03/21 08:15 09/03/21 08:21 DC 09/03/21 08:36 Verapamil HCl (Verapamil) 2.5 mg 1X ONCE IART 09/03/21 08:15 09/03/21 08:21 DC 09/03/21 08:36 Heparin Sodium (Porcine) (Heparin Sodium) 2,500 unit 1X ONCE IART 09/03/21 08:15 09/03/21 08:21 DC 09/03/21 08:36 Heparin Sodium/ Sodium Chloride (HEPARIN for ARTERIAL LINE FLUSH) 1,000 unit 1X ONCE IART 09/03/21 08:15 09/03/21 08:21 DC 09/03/21 08:15 Heparin Sodium/ Sodium Chloride (HEPARIN for ARTERIAL LINE FLUSH) 1,000 unit 1X ONCE IART 09/03/21 08:15 09/03/21 08:21 DC 09/03/21 08:15 Midazolam HCl (Versed) 2 mg 1X ONCE IV 09/03/21 08:15 09/03/21 08:21 DC 09/03/21 08:30 Fentanyl Citrate (Fentanyl 2ml Vial) 100 mcg 1X ONCE IV 09/03/21 08:15 09/03/21 08:21 DC 09/03/21 08:30 Iohexol (Omnipaque 300 Mg/ml) 100 ml 1X ONCE IART 09/03/21 08:15 09/03/21 08:21 DC 09/03/21 08:50 Lidocaine HCl (Xylocaine-Mpf 1% 2ml Vial) 2 ml 1X ONCE INJ 09/03/21 08:15 09/03/21 08:21 DC 09/03/21 08:35 Justifications for Admission Other Justification JEEVAN QUINTANILLA MD Sep 03, 2021 09:21
[2021-09-03] MEDS: hydroCHLOROthiazide 25 MG TABLET PO SCH (09:30)
[2021-09-03] MEDS: ASCORBIC ACID 500 MG TABLET PO SCH (09:30)
[2021-09-03] MEDS: IV NORMAL SALINE 1000ML BAG 1,000 ML IV SCH ×2 (09:30→19:29)
[2021-09-03] MEDS: LIDOCAINE (700MG/PATCH) PATCH. TD SCH (09:30)
[2021-09-03] MEDS: MULTIVITAMIN with MINERAL TABLET. PO SCH (09:30)
[2021-09-03] MEDS: HEPARIN 25,000UTS/250ML PREMIX 250 ML IV PRN (13:23)
--- NOTE | 2021-09-03 13:25 | NUR ---
SS following for discharge planning. SS reviewed pt chart and discussed with pt RN. Pt is from home and is currently on room air. Cardiology following. Pt had left heart cath today. SS will continue to follow for discharge planning. Addendum: 09/03/21 at 1328 by VALERIA WILKERSON SS Dr. Fitzgerald consulted for Cardiothoracic surgeon.
[2021-09-03] MEDS ORDERED: oxyCODONE/APAP 7.5/325 1 TAB TABLET PO PRN (18:45)
[2021-09-03] MEDS: ATORVASTATIN CALCIUM 20 MG TABLET PO SCH (19:28)
[2021-09-03] MEDS: PATCH REMOVAL. MC SCH (19:28)
--- NOTE | 2021-09-03 21:27 | CONS ---
DATE OF CONSULTATION: 09/03/2021 REASON FOR CONSULTATION: We were asked to see the patient by Dr. Torrez. HISTORY OF PRESENT ILLNESS: The patient is a 75-year-old admitted 09/01/2021 with chest pain. The patient actually first appeared at [facility] and they noted EKG changes and sent her to [place] for evaluation. Troponin was elevated and the patient was found to have a non-STEMI infarct. Today, the patient had cardiac catheterization that shows severe 3-vessel disease with the culprit vessel being a tight distal right coronary stenosis. Left ventricular function appears satisfactory. PAST MEDICAL HISTORY: Includes hypertension, chronic obstructive pulmonary disease, hyperlipidemia, and breast cancer. ALLERGIES: None. FAMILY HISTORY: Denies family history of coronary artery disease. SOCIAL HISTORY: Former smoker. REVIEW OF SYSTEMS: GENERAL: Denies fever, chills, weight loss. EYES: Denies vision change. HENT: Denies headache. Admits to chronic hearing loss. Denies sinus problems. PULMONARY: Denies new shortness of breath, or hemoptysis. CARDIAC: As mentioned severe chest pain, brought the patient to the Emergency Department. Denies palpitations. GASTROINTESTINAL: Denies nausea, vomiting, blood. GENITOURINARY: Denies urgency, frequency, blood. MUSCULOSKELETAL: Denies bone or joint pain. SKIN: Denies rash or infection. NEUROLOGIC: Denies motor or sensory dysfunction. ENDOCRINE: Denies goiter or tremor. HEMATOLOGIC: Denies bruisability, bleeding. PHYSICAL EXAMINATION: GENERAL: The patient is lying in bed, appears comfortable. VITAL SIGNS: Pulse rate 74. blood pressure 115/62, pulse ox 98 on room air, temperature 98.2. HEENT: No scleral icterus. No arcus. NECK: No mass, no bruit. CHEST: Clear to auscultation. HEART: Rhythm regular. No murmurs. ABDOMEN: Soft, no tenderness, no mass. EXTREMITIES: No clubbing, cyanosis or edema. VASCULAR: 1+ right popliteal pulse, 2+ left, 1+ right dorsalis pedis pulse. I do not feel the left, radial pulse 2+ on the left. Right side was accessed today. PSYCHIATRIC: Oriented x 3 and appropriate. NEUROLOGIC: No motor or sensory loss. MUSCULOSKELETAL: No bone or joint asymmetry or deformity. ASSESSMENT AND PLAN: I reviewed the cardiac catheterization and discussed the findings with the patient. There are severe 3-vessel coronary artery disease with reasonable ventricular function. I have recommended coronary artery bypass surgery. Risks and details of this were discussed. They include, but are not limited to bleeding, infection, anesthesia risks, heart and lung problems, stroke and . Options and alternatives were reviewed. The patient understands all of this and agrees with the recommendation for bypass surgery. I will discuss plan with Dr. Torrez. I would anticipate transfer to our facility in the next day or two with coronary bypass surgery on . Thank you for the consult. JONI DR: Zoila TID: [id number]
[2021-09-04 03:29] VITALS: BP 140/58
[2021-09-04 07:00] VITALS: BP 143/66
[2021-09-04] MEDS: HEPARIN for IV BOLUS 10,000 UNIT/10 ML VIAL. IV PRN (07:17)
[2021-09-04 08:14] LABS: BASO # 0.1 x10^3/uL (0.0-0.2); BASO % 1 % (0-3); EOS # 0.1 x10^3/uL (0.0-0.7); EOS % 1 % (0-3); HEMATOCRIT 36.1 % (36.0-47.0); HEMOGLOBIN 12.1 g/dL (12.0-15.5); LYMPH # 2.5 x10^3/uL (1.0-4.8); LYMPH % 26 % (24-48); MEAN CORPUSCULAR HEMOGLOBIN 31 pg (25-35); MEAN CORPUSCULAR HGB CONC 34 g/dL (31-37); MEAN CORPUSCULAR VOLUME 93 fL (79-100); MONO # 0.7 x10^3/uL (0.0-1.1); MONO % 7 % (0-9); NEUT # 6.3 x10^3/uL (1.8-7.7); NEUT % 66 % (31-73); PLATELET COUNT 354 x10^3/uL (140-400); RED BLOOD COUNT 3.87 x10^6/uL (3.50-5.40); RED CELL DISTRIBUTION WIDTH 13.5 % (11.5-14.5); WHITE BLOOD COUNT 9.6 x10^3/uL (4.0-11.0)
[2021-09-04 08:19] LABS: PROTHROMBIN TIME PATIENT 12.9 SEC (11.7-14.0)
[2021-09-04] MEDS: ASCORBIC ACID 500 MG TABLET PO SCH (08:35)
[2021-09-04] MEDS: METOPROLOL SUCC 24HR ER 100 MG TAB.ER.24H. PO SCH (08:36)
[2021-09-04] MEDS: hydroCHLOROthiazide 25 MG TABLET PO SCH (08:36)
[2021-09-04] MEDS: LOSARTAN POTASSIUM 50 MG TABLET. PO SCH (08:37)
[2021-09-04] MEDS: MULTIVITAMIN with MINERAL TABLET. PO SCH (08:37)
[2021-09-04] MEDS: LIDOCAINE (700MG/PATCH) PATCH. TD SCH (08:37)
[2021-09-04] MEDS: ASPIRIN CHEWABLE 81 MG TABLET. PO SCH (08:37)
[2021-09-04 08:38] LABS: ALBUMIN 3.4 g/dL (3.4-5.0); ALBUMIN/GLOBULIN RATIO 0.9 (1.0-1.7); CALCIUM 8.9 mg/dL (8.5-10.1); CREATININE 0.6 mg/dL (0.6-1.0); GFR 97.7; POTASSIUM 3.6 mmol/L (3.5-5.1); TOTAL BILIRUBIN 0.2 mg/dL (0.2-1.0); TOTAL PROTEIN 7.3 g/dL (6.4-8.2)
--- NOTE | 2021-09-04 08:38 | PDOC ---
LIZZ MCMULLEN SITE OPERATIONS MANAGER 09/04/21 0838: CARDIO Progress Notes Date and Time Date of Service 09/04/21 Time of Evaluation 0820 Subjective Subjective: No Chest Pain, No shortness of breath, No Palpitations, No Dizziness Vitals Vitals Vital Signs Date Time Temp Pulse Resp B/P (MAP) Pulse Ox O2 Delivery O2 Flow Rate FiO2 09/04/21 03:29 98.1 71 16 140/58 (85) 99 Room Air 98.1 09/03/21 09:05 2.0 Weight Weight [ ] Input and Output Intake and Output Intake and Output 09/04/21 07:00 Intake Total 360 ml Output Total 1400 ml Balance -1040 ml Intake Oral 360 ml Output Urine Total 1400 ml # Voids 2 Laboratory Labs Laboratory Tests Test 09/03/21 14:09 09/03/21 21:29 09/04/21 04:20 Heparin Anti-Xa Act, Unfractionated 0.58 IU/mL (0.30-0.70) 0.31 IU/mL (0.30-0.70) 0.17 IU/mL (0.30-0.70) White Blood Count 9.6 x10^3/uL (4.0-11.0) Red Blood Count 3.87 x10^6/uL (3.50-5.40) Hemoglobin 12.1 g/dL (12.0-15.5) Hematocrit 36.1 % (36.0-47.0) Mean Corpuscular Volume 93 fL (79-100) Mean Corpuscular Hemoglobin 31 pg (25-35) Mean Corpuscular Hemoglobin Concent 34 g/dL (31-37) Red Cell Distribution Width 13.5 % (11.5-14.5) Platelet Count 354 x10^3/uL (140-400) Neutrophils (%) (Auto) 66 % (31-73) Lymphocytes (%) (Auto) 26 % (24-48) Monocytes (%) (Auto) 7 % (0-9) Eosinophils (%) (Auto) 1 % (0-3) Basophils (%) (Auto) 1 % (0-3) Neutrophils # (Auto) 6.3 x10^3/uL (1.8-7.7) Lymphocytes # (Auto) 2.5 x10^3/uL (1.0-4.8) Monocytes # (Auto) 0.7 x10^3/uL (0.0-1.1) Eosinophils # (Auto) 0.1 x10^3/uL (0.0-0.7) Basophils # (Auto) 0.1 x10^3/uL (0.0-0.2) Prothrombin Time 12.9 SEC (11.7-14.0) Prothromb Time International Ratio 1.0 (0.8-1.1) Activated Partial Thromboplast Time 55 SEC (24-38) Physical Exam HEENT: Neck Supple W Full Motion Chest: Symmetric LUNGS: Clear to Auscultation Abdomen: Soft N/T Extremities: No Edema Neurology: alert, oriented, follow commands Assessment Assessment 1. NSTEMI 2. CAD; cath with triple vessel disease. LVEF 55%. CTS consulted. Plans for bypass 3. Accelerated hypertension; better controlled 4. Hyperlipidemia; LDL 63 5. H/o breast CA Recommendations Continue heparin gtt ASA, statin, BB therapy Pre-op CABG evaluation (LE vein mapping, bilateral carotid US) Echocardiogram Await transfer for bypass Supportive care Justicifation of Admission Dx: Justifications for Admission: Justification of Admission Dx: Yes Comments: NSTEMI CAD, triple vessel disease ELLIS CHERY MD 09/04/21 6022: CARDIO Progress Notes Assessment Assessment Patient seen and examined She is looking and feeling better. I agree with our nurse practitioners assessment and plan. NSTEMI. Intact LV systolic function. CAD; cath with triple vessel disease. CTS consulted. Plans for bypass Accelerated hypertension; better controlled Hyperlipidemia; LDL 63 H/o breast CA LIZZ MCMULLEN APRN Sep 04, 2021 08:38 ELLIS CHERY MD Sep 04, 2021 16:49
[2021-09-04] MEDS: IV NORMAL SALINE 1000ML BAG 1,000 ML IV SCH (08:47)
[2021-09-04 10:40] LABS: BILIRUBIN,URINE NEGATIVE (NEG); CLARITY,URINE CLEAR; COLOR,URINE YELLOW; NITRITE,URINE NEGATIVE (NEG); PROTEIN,URINE NEGATIVE (NEG-TRACE); UROBILINOGEN,URINE 0.2 mg/dL (0.2 mg/dL)
[2021-09-04 10:50] LABS: HYALINE CASTS, URINE OCCASIONAL /HPF
[2021-09-04 10:51] LABS: BACTERIA,URINE FEW /HPF (0-FEW); RBC,URINE 0 /HPF (0-2)
--- NOTE | 2021-09-04 10:58 | RAD ---
EXAM: Bilateral lower extremity venous mapping. HISTORY: Preoperative evaluation. Atherosclerosis. CABG. TECHNIQUE: Sonographic imaging of the lower extremity veins was performed. COMPARISON: None. FINDINGS: The bilateral greater saphenous veins and lesser saphenous veins are patent. The left great er saphenous vein is tortuous within the proximal calf. The right greater saphenous vein measures 6.8 mm within the proximal thigh, 2.8 mm within the upper m id thigh, 3.5 mm within the mid thigh, 3.4 mm within the distal thigh, 2.9 mm at the knee, 2.7 mm wit hin the proximal calf, 2.5 mm within the mid calf and 2.4 mm at the ankle. The right lesser saphenous vein measures 1.2 mm within the proximal calf, 0.9 mm within the mid calf, and 1.1 mm within the distal calf. The left greater saphenous vein measures 7.3 mm within the proximal thigh, 4.4 mm within the upper mi d thigh, 3.7 mm within the mid thigh, 3.7 mm within the distal thigh, 3.0 mm at the knee, 2.9 mm with in the proximal calf, 2.2 mm within the mid calf and 1.9 mm at the ankle. The left lesser saphenous vein measures 1.1 mm within the proximal calf, 1.5 mm within the mid calf, and 1.4 mm within the distal calf. IMPRESSION: Bilateral greater and lesser saphenous vein caliber measurements for operative planning, described above. Electronically signed by: Maryanne Pickett MD (09/04/2021 10:55 AM) [id number]
--- NOTE | 2021-09-04 10:59 | RAD ---
EXAM: Carotid Doppler sonogram. HISTORY: CABG. Atherosclerosis. Operative planning. TECHNIQUE: Peck scale and color Doppler sonographic evaluation of the neck with spectral waveform melva lysis was performed and static images are submitted for review. FINDINGS: There is moderate atherosclerotic plaque within the bilateral carotid bifurcations. The peak systolic velocity within the right common carotid artery is 80 cm/sec. The peak systolic harriet ocity within the right internal carotid artery is 91 cm/sec and the end diastolic velocity within the right internal carotid artery is 23 cm/sec. The right ICA/CCA ratio is 1.15. The peak systolic velocity within the left common carotid artery is 95 cm/sec. The peak systolic [place] within the left internal carotid artery is 74 cm/sec and the end diastolic velocity within the l eft internal carotid artery is 23 cm/sec. The left ICA/CCA ratio is 0.89. There is normal antegrade flow within both vertebral arteries. IMPRESSION: 1. Moderate atherosclerotic plaque within the carotid bifurcations. 2. Doppler findings consistent with less than 50 percent stenosis involving the internal carotid misael stephen. PQRS Compliance Statement - Stenosis calculations for CT, MR and conventional angiography are based u lele measurement of the distal ICA diameter in accordance with the NASCET methodology. Stenosis calcu lations for carotid ultrasound studies are derived from validated velocity criteria which are known t o correlate with the NASCET methodology. Consensus Panel Peck-scale and Doppler US Criteria for Diagnosis of ICA Stenosis Degree of Stenosis (%) ICA PSV (Cm/sec) Plaque Estimate (%)* Normal <125 None <50 <125 <50 50-69 125-230 >50 >70 but < near occlusion >230 >50 Near occlusion High, low, or undetectable Visible Total occlusion Undetectable Visible, no detectable lumen *Plaque estimate (diameter reduction) with peck-scale and color Doppler US Degree of Stenosis (%) ICA/CCA PSV Ratio ICA EDV (cm/sec) Normal <2.0 <40 <50 <2.0 <40 50-69 2.0-4.0 40-100 >70 but < near occlusion >4.0 >100 Near occlusion Variable Variable Total occlusion Not applicable Not applicable Electronically signed by: Maryanne Pickett MD (09/04/2021 10:57 AM) [id number]
[2021-09-04 11:00] VITALS: BP 132/63
[2021-09-04] MEDS ORDERED: PERFLUTREN PROTEIN-A MICROSPHR 0.22 MG/ML 3 ML VIAL. IV ONE ×2 (11:00→14:05)
--- NOTE | 2021-09-04 11:47 | PDOC ---
[employer] PROGRESS NOTE Date of Service DOS: DATE: 09/04/21 TIME: 11:43 Chief Complaint Chief Complaint A/P: NSTEMI - chest pain, elevated troponin, no ST elevations, some depressions improved with heparin and nitro GTT. Cardiac catheterization within the next 24 hours planned. Breast cancer - bilateral s/p lumpectomy and right axillary lypmh node dissection, chemo and radiation therapy in 2002, been in remission, off tamoxifen currently Hypertension - on metoprolol, olmesartan, HCTZ Hyperlipidemia - statin COPD - prn nebs History of Present Illness History of Present Illness Ms. Fox is a 75-year-old female with past medical history hypertension, hyperlipidemia, COPD who comes from [facility] ED c/o chest pain for 2 hours on 09/01/21 in her central chest. Squeezing in nature. Started while seated. Radiated into her bilateral posterior neck. The chest pain stopped prior to EMS transfer. She has had a few of these episodes over the last 2 days prior to arrival. EKG with mild ST segment elevation in the inferior leads, she received Brilinta 180 mg, 324 mg of aspirin, and a heparin bolus of 4000 units. Repeat EKG showed that her inferior ST elevation had resolved but she continues have some ST depression in the lateral leads. Chest x-ray showed no acute processes. She was initially treated with IV nitro and heparin. Her blood pressure improved to 136 systolic. A second EKG again confirmed no inferior ST elevation. 09/02: Overnight high-sensitivity troponin climbed from [phone] over 8-hour period.Complains of lower back pain. Chest pain neck pain have resolved. Blood pressure in the 120s. 09/03: Cardiac cath this morning with triple-vessel disease 70% stenosis LAD and circumflex 70% stenosis and 90% distal stenosis RCA. Cardiology has reached out to cardiothoracic surgery Dr. Pino. Patient is anxious. She is currently feeling weak and short of breath but has no chest pain, her only pain is in her back 09/04: Pain improved. Shortness of breath improved. Still very weak. Plan for transfer to [facility] for bypass surgery. Vitals/I&O Vitals/I&O: Vital Signs Date Time Temp Pulse Resp B/P (MAP) Pulse Ox O2 Delivery O2 Flow Rate FiO2 09/04/21 08:37 71 143/66 09/04/21 08:00 Room Air 09/04/21 07:00 98.3 19 97 98.3 09/03/21 09:05 2.0 I & O 09/03/21 09/03/21 09/04/21 15:00 23:00 07:00 Intake Total 360 ml 0 ml Output Total 400 ml 1000 ml Balance -40 ml -1000 ml Physical Exam General: No acute distress Heart: Regular rate Abdomen: Normal bowel sounds Labs Labs: Laboratory Tests Test 09/03/21 14:09 09/03/21 21:29 09/04/21 04:20 09/04/21 10:30 Heparin Anti-Xa Act, Unfractionated 0.58 IU/mL (0.30-0.70) 0.31 IU/mL (0.30-0.70) 0.17 IU/mL (0.30-0.70) White Blood Count 9.6 x10^3/uL (4.0-11.0) Red Blood Count 3.87 x10^6/uL (3.50-5.40) Hemoglobin 12.1 g/dL (12.0-15.5) Hematocrit 36.1 % (36.0-47.0) Mean Corpuscular Volume 93 fL (79-100) Mean Corpuscular Hemoglobin 31 pg (25-35) Mean Corpuscular Hemoglobin Concent 34 g/dL (31-37) Red Cell Distribution Width 13.5 % (11.5-14.5) Platelet Count 354 x10^3/uL (140-400) Neutrophils (%) (Auto) 66 % (31-73) Lymphocytes (%) (Auto) 26 % (24-48) Monocytes (%) (Auto) 7 % (0-9) Eosinophils (%) (Auto) 1 % (0-3) Basophils (%) (Auto) 1 % (0-3) Neutrophils # (Auto) 6.3 x10^3/uL (1.8-7.7) Lymphocytes # (Auto) 2.5 x10^3/uL (1.0-4.8) Monocytes # (Auto) 0.7 x10^3/uL (0.0-1.1) Eosinophils # (Auto) 0.1 x10^3/uL (0.0-0.7) Basophils # (Auto) 0.1 x10^3/uL (0.0-0.2) Prothrombin Time 12.9 SEC (11.7-14.0) Prothromb Time International Ratio 1.0 (0.8-1.1) Activated Partial Thromboplast Time 55 SEC (24-38) Sodium Level 137 mmol/L (136-145) Potassium Level 3.6 mmol/L (3.5-5.1) Chloride Level 101 mmol/L (98-107) Carbon Dioxide Level 26 mmol/L (21-32) Anion Gap 10 (6-14) Blood Urea Nitrogen 10 mg/dL (7-20) Creatinine 0.6 mg/dL (0.6-1.0) Estimated GFR (Cockcroft-Gault) 97.7 BUN/Creatinine Ratio 17 (6-20) Glucose Level 99 mg/dL (70-99) Calcium Level 8.9 mg/dL (8.5-10.1) Total Bilirubin 0.2 mg/dL (0.2-1.0) Aspartate Amino Transf (AST/SGOT) 25 U/L (15-37) Alanine Aminotransferase (ALT/SGPT) 31 U/L (14-59) Alkaline Phosphatase 49 U/L (46-116) Total Protein 7.3 g/dL (6.4-8.2) Albumin 3.4 g/dL (3.4-5.0) Albumin/Globulin Ratio 0.9 (1.0-1.7) Urine Collection Type Unknown Urine Color Yellow Urine Clarity Clear Urine pH 7.0 (<5.0-8.0) Urine Specific Diggs <=1.005 (1.000-1.030) Urine Protein Negative mg/dL (NEG-TRACE) Urine Glucose (UA) Negative mg/dL (NEG) Urine Ketones (Stick) Negative mg/dL (NEG) Urine Blood Negative (NEG) Urine Nitrite Negative (NEG) Urine Bilirubin Negative (NEG) Urine Urobilinogen Dipstick 0.2 mg/dL (0.2 mg/dL) Urine Leukocyte Esterase Moderate (NEG) Urine RBC 0 /HPF (0-2) Urine WBC 11-20 /HPF (0-4) Urine Squamous Epithelial Cells Few /LPF Urine Bacteria Few /HPF (0-FEW) Urine Hyaline Casts Occasional /HPF Urine Mucus Slight /LPF Assessment and Plan Assessmemt and Plan Problems Medical Problems: (1) Chest pain Status: Acute (2) NSTEMI (non-ST elevated myocardial infarction) Status: Acute Comment Review of Relevant I have reviewed the following items pepper (where applicable) has been applied. Medications: Current Medications Medications (Trade) Dose Ordered Sig/Madelin Route PRN Reason Start Time Stop Time Status Last Admin Dose Admin Oxycodone/ Acetaminophen (Percocet 7.5/ 325) 1 tab PRN Q4HRS PRN PO PAIN 09/03/21 18:45 09/03/21 19:27 Justifications for Admission Other Justification JEEVAN QUINTANILLA MD Sep 04, 2021 11:47
--- NOTE | 2021-09-04 12:05 | NUR ---
SS following up with discharge planning. SS reviewed pt chart and discussed with pt RN. Pt is currently on room air. Cardiology following. Pt had heart cath on 09/03/2021. Dr. Fitzgerald consulted for Cardiothoracic surgeon and has accepted pt for transfer to [facility] for probable surgery on , 09/06/2021. SS contacted RN wastewater treatment supervisor, Reyna, at [facility], ; fax [phone], and discussed. Pt to transfer to [facility] tomorrow. COVID19 test ordered for transfer. Clinical phoned and faxed as requested. Packet placed on chart. SS will continue to follow for discharge planning.
[2021-09-04] MEDS: HEPARIN 25,000UTS/250ML PREMIX 250 ML IV PRN (13:07)
[2021-09-04 15:00] VITALS: BP 137/64
--- NOTE | 2021-09-04 17:39 | CARD ---
MR#: [id number] Date of Study: 09/04/2021 Ordering Physician: TARAN NAVARRO, Referring Physician: TARAN NAVARRO, Tech: Chela Meza [facility] APPROVED REPORT EXAM: Two-dimensional and M-mode echocardiogram with Doppler and color Doppler. Other Information Quality : Technically LimitedHR: 73bpm INDICATION Cardiac Disease: CAD Echo Enhancing Agent Indication: Endocardial border delineation Agent/Amount Used: Optison 2mL RISK FACTORS Hypertension Hyperlipidemia 2D DIMENSIONS RVDd2.6 (2.9-3.5cm)Left Atrium(2D)3.9 (1.6-4.0cm) IVSd1.2 (0.7-1.1cm)Aortic Root(2D)3.3 (2.0-3.7cm) LVDd4.6 (3.9-5.9cm)LVOT Diameter2.0 (1.8-2.4cm) PWd1.2 (0.7-1.1cm)LVDs3.1 (2.5-4.0cm) FS (%) 32.2 %SV58.9 ml Aortic Valve AoV Peak Lazarus.142.2cm/sAoV VTI30.8cm AO Peak GR.8.1mmHgLVOT Peak Lazarus.111.5cm/s AO Mean GR.4mmHgAVA (VMAX)2.37cm2 Mitral Valve MV E Qoaqizcr14.9cm/sMV DECEL [id number] MV A Sminmcwy61.2cm/sE/A Ratio0.7 Pulmonary Valve PV Peak Occbjalc141.9cm/s Tricuspid Valve TR P. Radxqkqq096kr/sTR Peak Gr.26mmHg LEFT VENTRICLE The left ventricle is normal size. There is borderline concentric left ventricular hypertrophy. The l eft ventricular systolic function is normal and the ejection fraction is within normal range. LV eje ction fraction of 50 to 55% There is normal LV segmental wall motion. Transmitral Doppler flow patter n is Grade I-abnormal relaxation pattern. RIGHT VENTRICLE The right ventricle is normal size. There is normal right ventricular wall thickness. The right ventr icular systolic function is normal. ATRIA The left atrium size is normal. The right atrium size is normal. The interatrial septum is intact wit h no evidence for an atrial septal defect or patent foramen ovale as noted on 2-D or Doppler imaging. AORTIC VALVE The aortic valve is normal in structure and function. Doppler and Color Flow revealed no significant aortic regurgitation. There is no significant aortic valvular stenosis. MITRAL VALVE The mitral valve is normal in structure and function. There is no evidence of mitral valve prolapse. There is no mitral valve stenosis. Doppler and Color-flow revealed trace to mild mitral regurgitation . TRICUSPID VALVE The tricuspid valve is normal in structure and function. Doppler and Color Flow revealed trace tricus pid regurgitation. Estimated PAP 20 mmHg. There is no tricuspid valve stenosis. PULMONIC VALVE The pulmonary valve is normal in structure and function. Doppler and Color Flow revealed trace pulmon ic valvular regurgitation. GREAT VESSELS The aortic root is normal in size. The ascending aorta is normal in size. The IVC is normal in size a nd collapses >50% with inspiration. PERICARDIAL EFFUSION There is no evidence of significant pericardial effusion. Critical Notification Critical Value: No <Conclusion> The left ventricle is normal size. The left ventricular systolic function is normal and the ejection fraction is within normal range. LV ejection fraction of 50 to 55% There is borderline concentric left ventricular hypertrophy. Doppler and Color Flow revealed no significant aortic regurgitation. There is no significant aortic valvular stenosis. Doppler and Color-flow revealed trace to mild mitral regurgitation. Doppler and Color Flow revealed trace tricuspid regurgitation. Estimated PAP 20 mmHg. Signed by : Aneesh Cantor MD Electronically Approved : 09/04/2021 17:38:55
[2021-09-04 19:06] VITALS: BP 135/61
[2021-09-04] MEDS ORDERED: ATORVASTATIN CALCIUM 40 MG TABLET. PO SCH (21:00)
[2021-09-04] MEDS: PATCH REMOVAL. MC SCH (21:00)
[2021-09-04 22:16] VITALS: BP 124/89
[2021-09-05 02:31] VITALS: BP 124/59
[2021-09-05 07:00] VITALS: BP 138/66
--- NOTE | 2021-09-05 08:12 | PDOC ---
LIZZ MCMULLEN CIVIL CADD TECHNICIAN 09/05/21 0812: CARDIO Progress Notes Date and Time Date of Service 09/05/21 Time of Evaluation 1015 Subjective Subjective: No Chest Pain, No shortness of breath, No Palpitations, No Dizziness Vitals Vitals Vital Signs Date Time Temp Pulse Resp B/P (MAP) Pulse Ox O2 Delivery O2 Flow Rate FiO2 09/05/21 07:00 98.1 80 18 138/66 (90) 94 Room Air 98.1 09/04/21 11:00 98.0 Weight Weight [ ] Input and Output Intake and Output Intake and Output 09/05/21 06:59 Intake Total 840 ml Output Total 3700 ml Balance -2860 ml Intake Oral 840 ml Output Urine Total 3700 ml Laboratory Labs Laboratory Tests Test 09/04/21 08:44 09/04/21 10:30 09/04/21 12:20 09/04/21 14:25 Nasal Screen MRSA (PCR) Negative (NEGATIVE) Urine Collection Type Unknown Urine Color Yellow Urine Clarity Clear Urine pH 7.0 (<5.0-8.0) Urine Specific [place] <=1.005 (1.000-1.030) Urine Protein Negative mg/dL (NEG-TRACE) Urine Glucose (UA) Negative mg/dL (NEG) Urine Ketones (Stick) Negative mg/dL (NEG) Urine Blood Negative (NEG) Urine Nitrite Negative (NEG) Urine Bilirubin Negative (NEG) Urine Urobilinogen Dipstick 0.2 mg/dL (0.2 mg/dL) Urine Leukocyte Esterase Moderate (NEG) Urine RBC 0 /HPF (0-2) Urine WBC 11-20 /HPF (0-4) Urine Squamous Epithelial Cells Few /LPF Urine Bacteria Few /HPF (0-FEW) Urine Hyaline Casts Occasional /HPF Urine Mucus Slight /LPF Coronavirus (COVID-19)(PCR) Not detected (NOT DETECTD) Heparin Anti-Xa Act, Unfractionated 0.47 IU/mL (0.30-0.70) Test 09/04/21 20:30 Heparin Anti-Xa Act, Unfractionated 0.34 IU/mL (0.30-0.70) Microbiology Micro Microbiology 09/04/21 Urine Culture - Final, Complete Physical Exam HEENT: Neck Supple W Full Motion Chest: Symmetric LUNGS: Clear to Auscultation Heart: RRR Abdomen: Soft N/T Extremities: No Edema Neurology: alert, oriented, follow commands Assessment Assessment 1. NSTEMI 2. CAD; cath with triple vessel disease. LVEF 50-55%. CTS consulted. Plans for bypass 3. Accelerated hypertension; better controlled 4. Hyperlipidemia; LDL 63 5. H/o breast CA Recommendations Continue heparin gtt ASA, statin, BB therapy Transfer for bypass later today. Supportive care Justicifation of Admission Dx: Justifications for Admission: Justification of Admission Dx: Yes ELLIS CHERY MD 09/05/21 1508: CARDIO Progress Notes Assessment Assessment Patient seen and examined The patient is feeling better and is pain-free. I agree with our nurse practitioners assessment and plan. NSTEMI. Cath showed multivessel coronary artery disease. Intact LV systolic function. Chest pain-free. Continue present treatment. Transfer today to [facility] for bypass surgery tomorrow. Accelerated hypertension; better controlled Hyperlipidemia; LDL 63 H/o breast CA LIZZ MCMULLEN APRN Sep 05, 2021 08:12 ELLIS CHERY MD Sep 05, 2021 15:08
[2021-09-05] MEDS: LIDOCAINE (700MG/PATCH) PATCH. TD SCH (08:16)
[2021-09-05] MEDS: ASCORBIC ACID 500 MG TABLET PO SCH (08:17)
[2021-09-05] MEDS: ASPIRIN CHEWABLE 81 MG TABLET. PO SCH (08:17)
[2021-09-05] MEDS: LOSARTAN POTASSIUM 50 MG TABLET. PO SCH (08:17)
[2021-09-05] MEDS: MULTIVITAMIN with MINERAL TABLET. PO SCH (08:17)
[2021-09-05] MEDS: hydroCHLOROthiazide 25 MG TABLET PO SCH (08:17)
[2021-09-05] MEDS: METOPROLOL SUCC 24HR ER 100 MG TAB.ER.24H. PO SCH (08:17)
--- NOTE | 2021-09-05 08:47 | PDOC ---
[employer] PROGRESS NOTE Date of Service DOS: DATE: 09/05/21 TIME: 08:31 Chief Complaint Chief Complaint A/P: NSTEMI - chest pain, elevated troponin, no ST elevations, some depressions improved with heparin and nitro GTT. Cardiac catheterization revealed triple vessel disease CAD - 3VD - plans for CT surgery transfer to [facility] Breast cancer - bilateral s/p lumpectomy and right axillary lypmh node dissection, chemo and radiation therapy in 2002, been in remission, off tamoxifen currently Hypertension - on metoprolol, olmesartan, HCTZ Hyperlipidemia - statin COPD - prn nebs History of Present Illness History of Present Illness Ms. Fox is a 75-year-old female with past medical history hypertension, hyperlipidemia, COPD who comes from [facility] ED c/o chest pain for 2 hours on 09/01/21 in her central chest. Squeezing in nature. Started while seated. Radiated into her bilateral posterior neck. The chest pain stopped prior to EMS transfer. She has had a few of these episodes over the last 2 days prior to arrival. EKG with mild ST segment elevation in the inferior leads, she received Brilinta 180 mg, 324 mg of aspirin, and a heparin bolus of 4000 units. Repeat EKG showed that her inferior ST elevation had resolved but she continues have some ST depression in the lateral leads. Chest x-ray showed no acute processes. She was initially treated with IV nitro and heparin. Her blood pressure improved to 136 systolic. A second EKG again confirmed no inferior ST elevation. 09/02: Overnight high-sensitivity troponin climbed from [phone] over 8-hour period.Complains of lower back pain. Chest pain neck pain have resolved. Blood pressure in the 120s. 09/03: Cardiac cath this morning with triple-vessel disease 70% stenosis LAD and circumflex 70% stenosis and 90% distal stenosis RCA. Cardiology has reached out to cardiothoracic surgery Dr. Pino. Patient is anxious. She is currently feeling weak and short of breath but has no chest pain, her only pain is in her back 09/04: Pain improved. Shortness of breath improved. Still very weak. Plan for transfer to [facility] for bypass surgery. 09/05: She is little bit anxious little more comfortable today. Not requiring O2. Still mildly short of breath and weak. Echocardiogram reviewed EF 50-55 no significant aortic valve abnormalities. COVID-19 PCR returned negative Vitals/I&O Vitals/I&O: Vital Signs Date Time Temp Pulse Resp B/P (MAP) Pulse Ox O2 Delivery O2 Flow Rate FiO2 09/05/21 08:17 80 138/66 09/05/21 07:00 98.1 18 94 Room Air 98.1 09/04/21 11:00 98.0 I & O 09/04/21 09/04/21 09/05/21 15:00 23:00 07:00 Intake Total 360 ml 280 ml 200 ml Output Total 1100 ml 1625 ml 975 ml Balance -740 ml -1345 ml -775 ml Physical Exam General: No acute distress Heart: Regular rate Abdomen: Normal bowel sounds Labs Labs: Laboratory Tests Test 09/04/21 08:44 09/04/21 10:30 09/04/21 12:20 09/04/21 14:25 Nasal Screen MRSA (PCR) Negative (NEGATIVE) Urine Collection Type Unknown Urine Color Yellow Urine Clarity Clear Urine pH 7.0 (<5.0-8.0) Urine Specific [place] <=1.005 (1.000-1.030) Urine Protein Negative mg/dL (NEG-TRACE) Urine Glucose (UA) Negative mg/dL (NEG) Urine Ketones (Stick) Negative mg/dL (NEG) Urine Blood Negative (NEG) Urine Nitrite Negative (NEG) Urine Bilirubin Negative (NEG) Urine Urobilinogen Dipstick 0.2 mg/dL (0.2 mg/dL) Urine Leukocyte Esterase Moderate (NEG) Urine RBC 0 /HPF (0-2) Urine WBC 11-20 /HPF (0-4) Urine Squamous Epithelial Cells Few /LPF Urine Bacteria Few /HPF (0-FEW) Urine Hyaline Casts Occasional /HPF Urine Mucus Slight /LPF Coronavirus (COVID-19)(PCR) Not detected (NOT DETECTD) Heparin Anti-Xa Act, Unfractionated 0.47 IU/mL (0.30-0.70) Test 09/04/21 20:30 Heparin Anti-Xa Act, Unfractionated 0.34 IU/mL (0.30-0.70) Assessment and Plan Assessmemt and Plan Problems Medical Problems: (1) Chest pain Status: Acute (2) NSTEMI (non-ST elevated myocardial infarction) Status: Acute Comment Review of Relevant I have reviewed the following items pepper (where applicable) has been applied. Medications: Current Medications Medications (Trade) Dose Ordered Sig/Madelin Route PRN Reason Start Time Stop Time Status Last Admin Dose Admin Atorvastatin Calcium (Lipitor) 40 mg HS PO 09/04/21 21:00 09/04/21 21:23 Perflutren Protein Type A Microsphe (Optison) 0.66 mg 1X ONCE IV 09/04/21 11:00 09/04/21 11:01 DC 09/04/21 11:00 Justifications for Admission Other Justification JEEVAN QUINTANILLA MD Sep 05, 2021 08:47
[2021-09-05] MEDS ORDERED: HEPA1DIS11 IV (08:53)
--- NOTE | 2021-09-05 08:56 | SNU/HH DC ---
DISCHARGE ORDERS DISCHARGE INFORMATION: DISCHARGE DATE: Sep 05, 2021 FINAL DIAGNOSIS Problems Medical Problems: (1) Chest pain Status: Acute (2) NSTEMI (non-ST elevated myocardial infarction) Status: Acute CONDITION ON DISCHARGE: Stable CODE STATUS: Code Status: Full POST DISCHARGE ORDERS: ACTIVITY ORDERS: Resume previous activity WEIGHT BEARING STATUS: Full weight bearing DIET AFTER DISCHARGE: Cardiac CHECKS AFTER DISCHARGE: CHECKS AFTER DISCHARGE: Check blood press - daily, Check your Temp as needed FOLLOW-UP: Additional Instructions: Cardiothoracic surgery consultation DISCHARGE MEDICATIONS: Home Meds Active Scripts Heparin Sodium,Porcine/Pf (HEPARIN 5 UNIT/5 ML (1/ML) SYR) 1 Unit/1 Ml Disp.syrin, 12 UNIT IV CONT PRN for CHEST PAIN for 30 Days, #1 DIS.SYR Prov:JEEVAN QUINTANILLA MD 09/05/21 Reported Medications Ascorbic Acid (VITAMIN C) 100 Mg Tablet, 1 TAB PO DAILY for supplement for 30 Days, #30 TAB 0 Refills 09/01/21 Multivits-Min/Fa/Lycopene/Lut (CENTRUM SILVER TABLET) 1 Each Tablet, 1 EACH PO DAILY07 08/13/13 Aspirin (ASPIRIN) 81 Mg Tab.chew, 81 MG PO DAILY07, TAB.CHEW 08/13/13 Amlodipine Besylate (AMLODIPINE BESYLATE) 5 Mg Tablet, 5 MG PO HS 08/13/13 Atorvastatin Calcium (ATORVASTATIN CALCIUM) 20 Mg Tablet, 20 MG PO HS 08/13/13 Losartan/Hydrochlorothiazide (LOSARTAN-HCTZ 100-25 MG TAB) 1 Each Tablet, 1 EACH PO DAILY07 08/13/13 Metoprolol Tartrate (METOPROLOL TARTRATE) 100 Mg Tablet, 100 MG PO DAILY07 08/13/13 JEEVAN QUINTANILLA MD Sep 05, 2021 08:56
[2021-09-05 11:00] VITALS: BP 110/59
--- NOTE | 2021-09-05 11:13 | NUR ---
SS following up with discharge planning. SS reviewed pt chart and discussed with pt RN. Pt is currently on room air. COVID19 negative. Heparin and Nitro drip. Pt accepted for transfer at [facility] for Cardiothoracic surgery. SS contacted RN Casting Machine Set Up Operator, Reyna, at [place] and discussed. Per Reyna, currently awaiting bed availability in CCU at this time and will contact SS when bed is available. Pt's RN notified. Packet, ambulance form, and transfer form on the chart. SS will continue to follow for discharge planning.
[2021-09-05 15:00] VITALS: BP 117/56
--- NOTE | 2021-09-05 16:50 | NUR ---
Discharge Note: AUSTEN HUBBARD Discharge instructions and discharge home medications reviewed with Other facility and a copy given. All questions have been answered and understanding verbalized. Patient discharged to [facility] with EMS via stretcher. Report called to accepting nurse Willard, with drip rates confirmed.
== END 2021-09-05 16:40 | disposition short-term general hospital (02) | DRG 282 ==
LOC: ER 13:35 → ED HOLD 14:29 → 6 SOUTH 15:43
PROVIDERS: ADMIT Internal Medicine; ATTEND Internal Medicine
PROC: 4A023N7 Measurement of Cardiac Sampling and Pressure, Left Heart, Percutaneous Approach (ICD-10-PCS; principal; 2021-09-03)
PROC: B2111ZZ Fluoroscopy of Multiple Coronary Arteries using Low Osmolar Contrast (ICD-10-PCS; 2021-09-03)
PROC: B2151ZZ Fluoroscopy of Left Heart using Low Osmolar Contrast (ICD-10-PCS; 2021-09-03)
DX: I21.4 Non-ST elevation (NSTEMI) myocardial infarction (principal); J44.9 Chronic obstructive pulmonary disease, unspecified; C50.919 Malignant neoplasm of unspecified site of unspecified female breast; E78.5 Hyperlipidemia, unspecified; I10 Essential (primary) hypertension; I25.10 Atherosclerotic heart disease of native coronary artery without angina pectoris; Z79.899 Other long term (current) drug therapy; Z82.49 Family history of ischemic heart disease and other diseases of the circulatory system; Z85.3 Personal history of malignant neoplasm of breast; Z87.891 Personal history of nicotine dependence; Z92.21 Personal history of antineoplastic chemotherapy; Z92.3 Personal history of irradiation; Z20.822 Contact with and (suspected) exposure to COVID-19
CPT/HCPCS: 93458; 96360; 99285; C8929; 36415; 71045; 80048; 80053; 80061; 81001; 83036; 84484; 85025; 85520; 85610; 85730; 87086; 87641; 93005; 93880; 93970; 99152; 99153; C1894; J1644; J2250; J3010; J3490; J7030; Q9956; Q9967; U0003; G0378